=== PATIENT | female | born 1935 | race Caucasian/White ===

== ENCOUNTER 2017-04-11 05:59 | Inpatient (IN) ==
--- NOTE | 2017-04-11 06:32 | PROVIDER DOCUMENTATION ---
HPI-Respiratory General - General Chief Complaint: Shortness of Breath Stated Complaint: SOB Time Seen by Provider: 04/11/17 06:13 Source: patient, old records Allergies/Adverse Reactions: Patient Allergies Allergy/AdvReac Type Severity Reaction Status Date / Time ciprofloxacin [From Cipro] Allergy Severe PAIN Verified 04/11/17 06:31 ciprofloxacin HCl * Allergy Severe PAIN Verified 04/11/17 06:31 [From Cipro] codeine Allergy Severe Unknown Verified 04/11/17 06:31 doxycycline Allergy Severe Unknown Verified 04/11/17 06:31 meperidine HCl * Allergy Severe AMS Verified 04/11/17 06:31 [From Demerol] adhesive Allergy Unknown Regular Verified 04/11/17 06:31 Tape-pulls skin with it pneumococcal 23-valent Allergy Unknown Unknown Verified 04/11/17 06:31 polysac... * [From Pneumovax 23] Home Medications: Home Medication List Medication Instructions Recorded Confirmed Last Taken Type Cyclobenzaprine HCl [Flexeril] 10 mg PO BID 10/09/13 04/11/17 10/30/16 History Furosemide [Lasix] 40 mg PO DAILY 10/09/13 04/11/17 08/11/16 08:00 History Levothyroxine [Synthroid] 100 microgm PO DAILY 10/09/13 04/11/17 10/31/16 06:00 History Gabapentin 600 mg PO DAILY 04/29/15 04/11/17 10/31/16 06:00 History Amiodarone [Cordarone] 100 mg PO HS 02/29/16 04/11/17 10/31/16 06:00 History Apixaban [Eliquis] 2.5 mg PO DAILY 04/11/17 04/11/17 Unknown History Hydrocodone/APAP 10 mg/325 mg 1 tab PO TID 04/11/17 04/11/17 Unknown History [[place]-10] Lisinopril [Lisinopril] 1 tab PO DAILY 04/11/17 04/11/17 Unknown History - History of Present Illness-Resp Nature of Presenting Problem: pt w/ hx of afib/flutter (CVert ; Eliquis) cc: paroxysms of dyspnea/PND and incr. edema past sevl days. no violet CP. EKG last done here 02/28 showed NSR. pt had echo 09/29 w/ EF 50%, go gross pricard eff at that time, however in May [address] showing large effusion and she was sent to [facility] for ? window. Quality of Pain: reports: none Review of Systems - Adult - REVIEW OF SYSTEMS - ADULT Constitutional: reports: weight gain Eyes: reports: no symptoms reported Ears, Nose, Mouth & Throat: reports: no symptoms reported Cardiovascular: reports: see HPI, edema, irregular heart rate, orthopnea, PND. denies: syncope Respiratory: reports: dyspnea on exertion, shortness of breath. denies: hemoptysis, wheezing Gastrointestinal: reports: no symptoms reported Genitourinary: reports: no symptoms reported Musculoskeletal: reports: no symptoms reported Integumentary: reports: no symptoms reported Neurological: reports: no symptoms reported Psychiatric: reports: no symptoms reported Endocrine: reports: no symptoms reported Hematologic/Lymphatic: reports: no symptoms reported Allergic/Immunologic: reports: no symptoms reported All Other Systems: Reviewed and Negative Past History - Adult - PAST MEDICAL HISTORY-ADULT Review of Records: reports: Old Records Reviewed Major Childhood Illnesses: reports: denies history Cardiovascular: reports: HTN Respiratory: reports: denies history Gastrointestinal: reports: denies history Obstetrical/Gynecological: reports: denies history Genitourinary: reports: denies history Musculoskeletal: reports: arthritis (RA) Neurological: reports: denies history Endocrine/Immune: reports: thyroid disorder (hypo) Other Conditions: reports: denies history - PRIOR SURGERIES/PROCEDURES Surgical/Procedure History: reports: appendectomy, cholecystectomy, hysterectomy , orthopedic (extremity), joint replacement - IMMUNIZATION STATUS Childhood Immunizations: See Nurse Assessment Flu Vaccine: See Nurse Assessment - FAMILY HISTORY Family History: reviewed, not pertinent Physical Exam-General - PHYSICAL EXAM-ADULT Initial Vital Signs Reviewed: Yes - CONSTITUTIONAL General Appearance: alert, no apparent distress - EYES Eyes: PERRL/EOMI, pink conjunctivae - HEAD, EARS, NOSE, MOUTH & THROAT HENMT: normocephalic/atraumatic - NECK Neck: non-tender, full range of motion - RESPIRATORY Respiratory: no accessory muscle use, crackles, dull on percussion. negative: wheezing - CARDIOVASCULAR Cardiovascular: normal peripheral pulses, irregularly irregular, other (mult soft tissue deformities (and scars) chest wall adjacent shoulders, hx of RA) - GASTROINTESTINAL (ABDOMEN) Abdominal Exam: normal bowel sounds, non tender - LYMPHATIC Lymphatic: negative: axilla node tender, streaking - MUSCULOSKELETAL Back Exam: normal inspection, no CVA tenderness Extremity: joint effusion, swelling Peripheral Pulses: radial (R): 2+, radial (L): 2+ - SKIN Integumentary: normal color, warm/dry. negative: mottled, petechiae, rash - NEUROLOGIC Neurologic: microsoft bi developer II-XII nml as tested, grossly normal, no motor/sensory deficits Progress - PLAN OF CARE/RESULTS Progress/Plan/Lab Results: Vital Signs - 8 hr 04/11/17 06:14 04/11/17 08:00 04/11/17 09:00 Temperature 97.9 F Pulse Rate 89 85 85 Respiratory Rate 20 20 19 Blood Pressure 164/87 139/78 144/75 O2 Sat by Pulse Oximetry 100 100 99 04/11/17 10:00 04/11/17 11:38 Temperature Pulse Rate 83 83 Respiratory Rate 20 22 Blood Pressure 133/73 133/83 O2 Sat by Pulse Oximetry 100 100 Laboratory Results - last 24 hr 04/11/17 04/11/17 04/11/17 06:30 06:30 06:30 WBC 7.72 RBC 2.85 L Hgb 8.9 L Hct 29.0 L MCV 101.8 H MCH 31.2 H MCHC 30.7 L RDW Std Deviation 17.4 H Plt Count 317 MPV 9.1 Immature Gran % (Auto) 0.0 Neut % (Auto) 67.7 Lymph % (Auto) 18.8 L [place] % (Auto) 7.8 Eos % (Auto) 5.3 Baso % (Auto) 0.4 Immature Gran # (Auto) 0.00 Neut # (Auto) 5.23 Lymph # (Auto) 1.45 [place] # (Auto) 0.60 H Eos # (Auto) 0.41 Baso # (Auto) 0.03 PT INR D-Dimer 10.77 H Sodium 134 L Potassium 4.2 Chloride 93 L Carbon Dioxide 31 Anion Gap 10 BUN 21 Creatinine 1.0 H Estimated GFR/1.73 m2 53 BUN/Creatinine Ratio 21 Glucose 98 Calculated Osmolality 271 Calcium 8.8 Magnesium 2.3 Total Bilirubin 0.93 AST 27 ALT 13 Alkaline Phosphatase 173 H Creatine Kinase 91 Troponin T Gna-W-Yaxji[place]uzea Pept Total Protein 7.0 Albumin 3.3 L Globulin 3.7 Albumin/Globulin Ratio 0.9 04/11/17 04/11/17 04/11/17 06:30 06:30 06:30 WBC RBC Hgb Hct MCV MCH MCHC RDW Std Deviation Plt Count MPV Immature Gran % (Auto) Neut % (Auto) Lymph % (Auto) [place] % (Auto) Eos % (Auto) Baso % (Auto) Immature Gran # (Auto) Neut # (Auto) Lymph # (Auto) [place] # (Auto) Eos # (Auto) Baso # (Auto) PT 12.1 H INR 1.14 D-Dimer Sodium Potassium Chloride Carbon Dioxide Anion Gap BUN Creatinine Estimated GFR/1.73 m2 BUN/Creatinine Ratio Glucose Calculated Osmolality Calcium Magnesium Total Bilirubin AST ALT Alkaline Phosphatase Creatine Kinase Troponin T 0.038 Pgi-S-Tkvmvkkhnga Pept 3105 H Total Protein Albumin Globulin Albumin/Globulin Ratio Orders Category Date Time Status Admit - [facility] [place] Routine AdmDCTranf 04/11/17 11:14 Ordered Cardiac Monitoring DIRECTED Care 04/11/17 06:14 Active Nursing- MD Consult Request ROUTINE Care 04/11/17 11:20 Active Saline Loc NOW Care 04/11/17 06:14 Active Physician/Provider Consults Routine Cons 04/11/17 11:19 Ordered ANGIOGRAM/PULMONARY ARTERIES [CT] Stat Exams 04/11/17 09:15 Completed CHEST-1 VIEW [RAD] Stat Exams 04/11/17 06:15 Completed CBC WITH ELECTRONIC DIFF [HEME] Stat Lab 04/11/17 06:30 Completed CK PROFILE [SP CHEM] Stat Lab 04/11/17 06:30 Completed COMPREHENSIVE METABOLIC PANEL [CHEM] Stat Lab 04/11/17 06:30 Completed D-DIMER [CHEM] Stat Lab 04/11/17 06:30 Completed MAGNESIUM [CHEM] Stat Lab 04/11/17 06:30 Completed PRO B-NATRIURETIC PEPTIDE Stat Lab 04/11/17 06:30 Completed PROTIME WITH INR [COAG] Stat Lab 04/11/17 06:30 Completed TROPONIN T Stat Lab 04/11/17 06:30 Completed Gabapentin [Neurontin] Med 04/11/17 07:49 Discontinued 300 mg PO NOW ONE EKG [EKG] Stat Ther 04/11/17 06:01 Draft Echo Spec/Color Dop W/O Contra Stat Ther 04/11/17 11:16 Ordered Transfer/Admit Order [TRANSFER] Routine Transfer 04/11/17 11:[address] shows no PE but large pericardial effusion: will consult Hospitalist. Result Diagrams: 04/11/17 06:30 04/11/17 06:30 - CT/MRI 1 CT Results: CT shows bilat pleural effusions and pericardial effusion Departure - Departure Date of Disposition Decision: 04/11/17 Time of Disposition Decision: 11:42 DIAGNOSIS: Effusion, pericardium Disposition: ADMITTED INPATIENT 09 Certified Medical Emergency: Emergent Condition: Fair Referrals and Follow-Ups: Rosa Davis MD [Primary Care Provider] - - Critical Care Note This patient required my direct & personal management of CC.: No
--- NOTE | 2017-04-11 06:33 | Diag Imaging Result Doc PS360 ---
EXAM: CHEST-1 VIEW HISTORY: palpitations, dyspnea TECHNIQUE: Portable upright COMPARISON: 03/09/2017 FINDINGS: No change in the left subclavian portacatheter. No pneumothorax. Cardiomegaly remains. Small bilateral pleural effusions have developed. There is bibasilar atelectasis on the current exam. There may be underlying infiltrates in the bases as well. There is been extensive surgery to the right humerus since the prior exam. Prior orthopedic surgery to each shoulder. IMPRESSION: Development of pleural effusions with basilar atelectasis and/or infiltrates. Electronically signed by Oneil Gould 04/11/2017 6:31 AM
[2017-04-11 06:45] LABS: MANUAL DIFF NEEDED? NO
--- NOTE | 2017-04-11 06:53 | EKG Report ---
Test Performed on : 04/11/2017 06:08:04 AM Test Reason : SOB Blood Pressure : / mmHG Vent. Rate : 106 BPM Atrial Rate : 136 BPM P-R Int : 000 ms QRS Dur : 104 ms QT Int : 374 ms P-R-T Axes : 000 041 187 degrees QTc Int : 496 ms Atrial fibrillation. with rapid ventricular response. Anterior infarct , age undetermined Abnormal ECG When compared with ECG of 09-MAR-2017 16:09, Atrial fibrillation. has replaced Sinus rhythm. Anterior infarct is now present Unconfirmed Result
[2017-04-11 07:04] LABS: ALBUMIN 3.3 g/dL (3.5-5.0); BASO% 0.4 % (0.0-0.8); CALCIUM 8.8 mg/dL (8.8-10.2); EOS# 0.41 X1000 (0.0-0.7); EOS% 5.3 % (0.0-10.0); HEMOGLOBIN 8.9 g/dL (12.0-16.0); LYMPH# 1.45 X1000 (1.2-3.4); LYMPH% 18.8 % (20.5-51.1); MAGNESIUM 2.3 mg/dL (1.5-2.7); MCH 31.2 PG (27-31); MCHC 30.7 g/dL (33-37); MCV 101.8 FL (81-99); MONO% 7.8 % (1.7-9.3); MPV 9.1 FL (7.4-10.4); NEUT% 67.7 % (42.2-75.2); PLT 317 X1000 (130-400); POTASSIUM 4.2 mmol/L (3.5-5.1); RBC 2.85 XMIL (4.2-5.4); TOTAL BILIRUBIN 0.93 mg/dL (0.20-1.00)
[2017-04-11 07:14] LABS: INR 1.14; PROTIME 12.1 Seconds (9.2-11.7)
[2017-04-11] MEDS ORDERED: NEURONTIN PO ONE (07:49)
--- NOTE | 2017-04-11 10:26 | Diag Imaging Result Doc PS360 ---
ANGIOGRAM/PULMONARY ARTERIES - 04/11/2017 INDICATION: dyspnea, stable CXR, dimer > 10 TECHNIQUE: A CT dose reduction protocol was used. Axial CT images were obtained after administering intravenous contrast. Coronal MIP images were generated. COMPARISON: 06/12/2016 FINDINGS: There is no pulmonary embolism. There is significant reflux of contrast into the IVC and renal and hepatic veins indicating cardiac failure. There is a large multifocal irregular complicated pericardial effusion. The largest area is at the left lateral surface and measures about 9.5 x 5.3 cm. There is also a smaller area at the inferior right ventricle measuring 4.4 cm. Overall this effusion is smaller than it was on 06/12/2016. There are moderate bilateral pleural effusions. There is moderate collapse of the lung bases, worst at the right lower lobe. There is interlobular septal thickening throughout the lungs and groundglass opacities diffusely compatible with interstitial pulmonary edema. There are numerous compression fractures in the thoracolumbar spine, and numerous vertebroplasty levels. Bones are very osteopenic. IMPRESSION: 1. No pulmonary embolism. 2. Moderate pleural effusions and bibasilar extensive passive atelectasis. 3. Right heart failure. 4. Relatively large complicated pericardial effusion. Electronically signed by Cirilo Dalton 04/11/2017 10:23 AM
--- NOTE | 2017-04-11 13:02 | CONSULTATION ---
DATE OF CONSULTATION: 04/11/2017 HISTORY OF PRESENT ILLNESS: A 81-year-old lady who presented to the emergency room with shortness of breath. The patient has history of atrial flutter and fibrillation, underwent cardioversion. Complains of increasing dyspnea on exertion and some paroxysmal dyspnea as well. She has noticed some increased edema lower extremities over the last several days. No chest pain. She has had a complicated cardiac history as listed below. A CT scan was done of her chest which revealed a pericardial and pleural effusion. Cardiology was consulted. At time of my examination, patient does not complain of any chest pain. She has had significant rheumatoid arthritis and her main problems have been with shortness of breath. There has been no syncope. A 14-point review of systems was done. REVIEW OF SYSTEMS: GI: There is no history of nausea, vomiting, or diarrhea. There is no history of hematemesis or melena. Central nervous system: No focal weakness to suggest a CVA or TIA. Genitourinary: There is no dysuria or hematuria. PAST MEDICAL HISTORY: 1. Coronary artery disease. 2. Atrial flutter/fibrillation, status post cardioversion in 2016. 3. Rheumatoid arthritis. Chronic hyponatremia, dysphagia, renal insufficiency in 2016. Hypothyroidism. Hypertension. Heart failure. 4. Pleural effusion. Pericardial effusion status post pericardiocentesis 08/2009. 1. Loculated pericardial effusion 06/13/2016 at [facility], status post left anterior thoracotomy and exploration of the pericardium on 06/15/2016. The patient had a subxiphoid pericardial window and removal of cardiotomy drain on 06/21/2016. 2. History of dysphagia. 3. Barium swallow. Tertiary contractions during swallowing. 4. Personal history of fall. HOME MEDICATIONS: Lasix 40 mg a day. Levothyroxine 112. Cyclobenzaprine. Flexeril 10 mg p.o. b.i.d. Gabapentin 300. Amiodarone 200 mg tablet, 100 mg at bedtime. Eliquis 2.5 mg b.i.d. Lisinopril 5. Hydrocodone. ALLERGIES: She is allergic to ciprofloxacin, codeine, doxycycline, meperidine. PHYSICAL EXAMINATION: Vital signs: Blood pressure 133/83. First and second heart sounds were heard. There was no rub noted. No S3 gallop. Respiratory system: Basal dullness with scattered wheeze, crepitations. Abdomen: Soft, nontender. There was no guarding or rigidity. Extremities: Pedal edema. Endocrine: She had rheumatoid arthritis involving her extremities and joints. Central nervous system: Alert, moving all extremities. HEENT: Atraumatic. Pupils were equal and reacting to light. LABORATORY EXAMINATION: Hemoglobin 8.9, hematocrit 29, platelet count of 315,000. Chemistry: Sodium 134, potassium 4.2, BUN 21, creatinine 1. ProBNP 3105. Troponin 0.038. IMAGIN. X-ray of the hip and pelvis was done on 03/09/2017 which revealed acute on chronic fractures of the right pubic rami. 2. Shoulder x-ray 03/09/2017 revealed a periprosthetic fracture at the right humerus midshaft. 3. Knee x-ray 03/09/2017 revealed malalignment of the knee with posterior translation of the distal femur. As she had a fall, this was done, suggestive of internal derangement, large joint effusion. This was of the right knee. 4. CT scan: Pulmonary arteriogram was done today in the emergency room which revealed no pulmonary embolism. Pleural effusions with extensive atelectasis bilateral. There was a pericardial effusion noted and heart failure. ASSESSMENT: Ms. Lea Frank is a 81-year-old lady who comes with increasing shortness of breath and has significant severe rheumatoid arthritis, complicated cardiac history status post pericardial window placement and effusion drainage. She has also had heart failure, pleural effusion. CT scan revealed cardiomegaly, pleural effusion and pericardial effusion PLAN: 1. We will get an echocardiogram to assess for the pericardial effusion to see there is significant effusion and/or tamponade. Of note is that she has had a pericardial window placed in the past in 2016. 2. Atrial fibrillation. Her electrocardiogram revealed atrial fibrillation with rate under control. She is on amiodarone and Eliquis. I have not made any changes. She underwent a cardioversion earlier to sinus rhythm. Now she has reverted back to being in atrial fibrillation. 3. She has significant rheumatoid arthritis with associated joint disease involvement as mentioned above. 4. Would recommend discontinuing the Lasix p.o. and given her pleural effusion, we will also get IV Lasix to help with her heart failure. 5. She has hypothyroidism, on thyroid supplement. I have not made any changes. In the past, she has had chest tubes placed for pleural effusion. However, we will assess the progress with IV Lasix and after the echocardiogram, we will plan for further recommendations as well. Thank you for the consult. cc: Stanley Hughes MD
--- NOTE | 2017-04-11 14:47 | ECHO REPORT ---
ORDER DATE: 04/11/2017 INDICATION: Possible tamponade, history of coronary disease. FINDINGS: 1. Right atrium is normal size at 3.2 cm. 2. Mild tricuspid regurgitation. RV systolic pressure of 51. 3. Normal RV size and systolic function. 4. Mild pulmonic insufficiency. 5. Normal left atrial size at 2.6 cm. 6. There is a moderate amount of mitral annular calcification with no evidence of mitral valve prolapse. Likely moderate mitral regurgitation. There is insufficient Doppler evidence to assess the transmitral gradient but there does not appear to be any significant degree of stenosis based on normal left atrial size. In addition, I do not believe the degree of mitral regurgitation is severe based on the normal left atrial size. 7. Normal LV size with an end-diastolic dimension of 4.6. Normal wall thicknesses with a posterior and interventricular septal thickness 0.9 cm each. Normal LV systolic function. Estimated EF is 60-65% with normal wall motion. 8. Aortic valve opens well. It is somewhat sclerotic, but not stenotic. There is mild aortic insufficiency. 9. Aorta appears somewhat dilated at the root with a dimension of 4.3 cm. 10. No pericardial effusion seen. cc: MD Orville Rubi CRNP
--- NOTE | 2017-04-11 14:47 | HISTORY AND PHYSICAL ---
PRIMARY CARE PHYSICIAN: Rosa Davis MD. AUTOMOBILE BODY REPAIR SUPERVISOR: Dr. Yayo Langley. CHIEF COMPLAINT: Shortness of breath. HISTORY OF PRESENT ILLNESS: Mrs. Frank is a very pleasant, but unfortunate 81- year-old female with a history of atrial fibrillation/flutter, severe rheumatoid arthritis, history of pericardial effusion requiring pericardial window, and a recent right humeral fracture, who presents with acute worsening of shortness of breath over the last several days. She reports having some shortness of breath over the last month but acutely worse over the past week. She came in today because she cannot even sit up without becoming short of breath. She denies any chest pain, but does report some orthopnea, lower extremity edema and PND. She came to the ER for evaluation and had a CTA of the chest done which was negative for PE but did report relatively large complicated pericardial effusion with right heart failure. There was also interlobular septal thickening throughout the lungs with ground-glass opacities diffusely compatible with interstitial pulmonary edema. Her spine was noted to have multiple compression fractures and numerous vertebroplasty levels with osteopenic bones. On her lab work she is anemic but otherwise unremarkable. We spoke with Cardiology who ordered a stat echocardiogram, this did not reveal any tamponade physiology. We are now going to admit her for further treatment and evaluation. PAST MEDICAL HISTORY: 1. Rheumatoid arthritis. 2. History of pericardial effusion, status post pericardial window. 3. CAD. 4. Atrial fibrillation/flutter. 5. Hypothyroidism. 6. Hypertension. 7. Diastolic heart failure. 8. History of hyponatremia. PAST SURGICAL HISTORY: She has had a pericardial window, left anterior thoracotomy and exploration of pericardium, cholecystectomy, appendectomy, DC cardioversion, left chest port, bilateral hip replacements, bilateral shoulder replacements, bilateral knee replacements, recent humeral ORIF. SOCIAL HISTORY: Patient lives at home with her . There is no tobacco, alcohol or drug use. She is currently bed and wheelchair bound essentially per Orthopedics recommendations from her recent fall with humeral fracture. ALLERGIES: To ciprofloxacin, codeine, doxycycline, Demerol, adhesive tapes, pneumococcal vaccination. HOME MEDICATIONS: Lisinopril 1 daily. [place] 10 as needed for pain 3 times a day. Eliquis 2.5 mg daily. Synthroid 100 mcg p.o. daily. Neurontin 600 mg p.o. daily. Lasix 40 mg p.o. daily. Flexeril 10 mg b.i.d. Amiodarone 100 mg p.o. at bedtime. REVIEW OF SYSTEMS: Fourteen-point review of systems obtained and found to be negative with the exception of the HPI. PHYSICAL EXAMINATION: VITAL SIGNS: Blood pressure is 128/80, heart rate is 82, respiratory rate 22, O2 saturation 100% on 3 L nasal cannula, temperature is 97.9 degrees. GENERAL: Frail and elderly appearing, 81-year-old female, lying in a hospital bed in no acute distress. NEUROLOGIC: The patient is awake, alert, oriented and follows commands without focal deficits. HEENT: Head is atraumatic, normocephalic. Pupils equal, round, and reactive to light. Oral mucosa is moist. Trachea is midline. No JVD. CHEST: Diminished at the bases with very fine crackles bilaterally. CV: Irregular rate and rhythm. S1, S2 is noted. GI: Soft, nondistended, nontender. Bowel sounds positive. EXTREMITIES: Diminished pulses, 1+ edema bilaterally. DIAGNOSTIC DATA: Chest x-ray shows development of small bilateral pleural effusions with basilar atelectasis and/or infiltrates. CT of the chest shows no PE, moderate pleural effusions and basilar extensive passive atelectasis. There is right heart failure and relatively large complicated pericardial effusion. LAB DATA: WBC 7.72, hemoglobin 8.9, hematocrit 29, MCV 101.8, platelet count 317,000, INR 1.14, D- dimer 10.77. Sodium 134, potassium 4.2, chloride 93, CO2 31, anion gap 10, BUN 29, creatinine 1, glucose 98, calcium 8.8, magnesium 2.3, bilirubin 0.93, AST 27, ALT 13, alkaline phosphatase 173. CK 91, troponin 0.038, proBNP 3105. Albumin 3.3. ASSESSMENT AND PLAN: 1. Dyspnea: Likely multifactorial to include right heart failure, pericardial effusion, pulmonary edema. We are going to diurese her, and await final echo results. No need for pericardiocentesis or a window at this time per Cardiology report. We will make sure she has breathing treatments and aggressive pulmonary toilet. We will follow strict ins and outs and daily weights, and attempt to diurese her. We will trend her enzymes as well. 2. Large pericardial effusion: There is no associated tamponade physiology per Cardiology report. We will continue to monitor and diuresis and defer any other treatments to Cardiology. 3. Macrocytic anemia: Iron studies are pending. We will treat accordingly. 4. Severe rheumatism: We will continue her home medications. Otherwise stable. 5. Bilateral pleural effusion: We will attempt diuresis, if no improvement, would consider consulting Pulmonary or asking Radiology to do a thoracentesis. 6. Chronic atrial fibrillation: Chronic and stable, continue home medications including Eliquis. 7. Hypothyroidism: We will make sure we check a TSH and free T4 in the morning. 8. Deep venous thrombosis prophylaxis is going to be provided with her Eliquis. 9. Further recommendations to follow. Dictated by REBECCA Moore for Oneyda Figueroa MD cc: REBECCA Moore MD Sarah E. Styers, MD Luis N. Villanueva, MD The patient was seen and examined by me. I agree with the assessment and plan as dictated. The plan of care was discussed with the patient and her at the bedside. DENISE
[2017-04-11] MEDS: LASIX IV SCH (15:06)
[2017-04-11] MEDS: NORCO-10 PO SCH (16:02)
[2017-04-11] MEDS: CORDARONE PO SCH (20:44)
[2017-04-11] MEDS: FLEXERIL PO SCH (20:45)
[2017-04-11] MEDS: NEURONTIN PO SCH (20:46)
[2017-04-12] MEDS: LASIX IV SCH ×2 (01:15→12:21)
[2017-04-12 06:01] LABS: CALCIUM 8.7 mg/dL (8.8-10.2); POTASSIUM 3.9 mmol/L (3.5-5.1)
[2017-04-12 06:07] LABS: HEMATOCRIT 30.8 % (37.0-47.0); HEMOGLOBIN 9.6 g/dL (12.0-16.0); MCH 32.3 PG (27-31); MCHC 31.2 g/dL (33-37); MCV 103.7 FL (81-99); MPV 9.3 FL (7.4-10.4); RBC 2.97 XMIL (4.2-5.4)
[2017-04-12] MEDS: NEURONTIN PO SCH ×3 (06:37→16:28)
[2017-04-12 06:55] LABS: FERRITIN 819 ng/mL (13-150)
[2017-04-12] MEDS: ELIQUIS PO SCH ×2 (08:05→20:50)
[2017-04-12] MEDS: FLEXERIL PO SCH ×2 (08:05→20:49)
[2017-04-12] MEDS: NORCO-10 PO SCH ×3 (08:05→16:27)
[2017-04-12] MEDS: PRINIVIL PO SCH (08:05)
[2017-04-12] MEDS ORDERED: ELIQUIS PO SCH (09:00)
[2017-04-12] MEDS ORDERED: SYNTHROID PO SCH (09:00)
[2017-04-12] MEDS ORDERED: NEURONTIN PO SCH (09:00)
--- NOTE | 2017-04-12 10:02 | PROGRESS NOTE ---
DATE: 04/12/2017 CHIEF COMPLAINT: Shortness of breath, irregular heartbeat. SUBJECTIVE: Mrs. Frank is still somewhat short of breath. Heart rate is better controlled. She appears to be in persistent atrial flutter. OBJECTIVE: Vital signs: Blood pressure is 133/73, temperature 97.9, pulse 86 to 90, respirations 25. General: Elderly, in no distress, frail looking, somewhat pale. HEENT: Unremarkable. Chest: Diminished breath sounds bilaterally. Cardiac: Heart sounds are "regular" without gallop or obvious murmur. Abdomen: Nontender. Extremities: Showed edema, right leg 2+, left leg 1+. Right arm is markedly edematous. It has a scar of recent surgery. Left arm is fine. Neurological: Follows commands, moves four extremities. BLOOD WORK: White count 6160, hemoglobin 9.6, hematocrit 30.8, MCV 103.7, RDW 17.5, platelet count 264,000. We have checked electrolytes: Sodium 136, potassium 3.9, carbon dioxide 33, BUN 20, creatinine 0.9. Her iron saturation is 27%, ferritin is 819. TSH is 20.24. Free T4 is low at 0.82. ProBNP is 3105. When she came into the hospital a month ago, the day of her accident, her proBNP was higher than that. Her sed rate is 81. Her rheumatoid factor that we have ordered this morning is greater than 650. That is more than 40 times the normal value. IMPRESSION: 1. Patient who presented initially on March 09 to the emergency room after suffering a fall at home, breaking her right arm and the pelvic bone. She was taken to [facility] where they operated on the arm and recommended basically bedrest for management of her pelvic bone fracture. The patient was at [facility] probably getting IV fluids for 4 days or so. Lately, she has developed swelling of her legs. More than likely she has flipped her rhythm from sinus rhythm into atrial flutter due to the stress of the broken bones and the surgery plus the fluid overload, and this has self-perpetuated. The patient is in atrial flutter right now. 2. Congestive heart failure secondary to fluid overload, diastolic dysfunction. 3. Rheumatoid arthritis with laboratory suggestion of activity. 4. Fractured arm and pelvic bone. RECOMMENDATION: We will try to optimize her fluid management or fluid status by using diuretics for the time being. Once the patient is euvolemic, we will consider pursuing cardioversion. An echocardiogram was done yesterday, and that shows excellent left ventricular systolic function without any evidence of pericardial effusion. On the CT scan of the chest that they did on admission at this time on April 11, there is evidence of bilateral pleural effusions and a loculated paracardiac collection, but it does not appear to be actually pericardial per se and is not causing any physiology of tamponade. At any rate, we will follow her. Of note, her D-dimer on presentation was elevated at 10.77, which might be an indication of active inflammatory process related to her rheumatoid arthritis. cc: Yayo Langley MD
--- NOTE | 2017-04-12 14:05 | PROGRESS NOTE ---
DATE: 04/12/2017 SUBJECTIVE: The patient states that she feels a lot better this morning. She is less short of breath. OBJECTIVE: Vital Signs: Temperature 98 degrees, blood pressure 96/68, heart rate 88, respirations 20, O2 saturation is 100% on 2 L nasal cannula. General: This is an elderly female lying in bed, in no acute distress. Head: Normocephalic, atraumatic. Heart: S1, S2. Normal. Irregularly irregular rhythm. Lungs: Equal air entry bilaterally. No crackles. Abdomen: Positive bowel sounds. Soft, nontender, nondistended. Extremities: +2 edema. No cyanosis. No calf tenderness. Neurologic: The patient is alert and oriented x3. LABORATORY: White blood cell count 6.1, hemoglobin 9.6, hematocrit 30, platelets 264,000. Sodium 136, potassium 3.9, chloride 94, CO2 33, BUN 20, creatinine 0.9, glucose 77. ASSESSMENT AND PLAN: 1. Acute diastolic congestive heart failure exacerbation. Continue to diurese with IV Lasix. We will monitor the patient's input and output closely. We will also monitor daily weights. Further management as per the water team leader. 2. Atrial flutter. The patient is on amiodarone and Eliquis. 3. Hypothyroidism. We will increase the patient's Synthroid dosage to 125 mcg p.o. daily. 4. Severe rheumatoid arthritis. The patient appears to be having increased activity based on the blood work done this morning. The patient states that she gets Orencia infusions on a regular basis. 5. Neuropathy. Continue on gabapentin. cc: Oneyda Figueroa MD
[2017-04-12] MEDS: CORDARONE PO SCH (20:49)
[2017-04-12] MEDS ORDERED: MISC. PHARMACY COMMUNICATION SCH (21:00)
[2017-04-13 05:41] LABS: HEMATOCRIT 29.4 % (37.0-47.0); HEMOGLOBIN 9.1 g/dL (12.0-16.0); MCH 32.4 PG (27-31); MCV 104.6 FL (81-99); MPV 9.1 FL (7.4-10.4); RBC 2.81 XMIL (4.2-5.4)
[2017-04-13 05:48] LABS: AGAP 11; BUN 22 mg/dL (8-22); CALCIUM 8.5 mg/dL (8.8-10.2); CHLORIDE 94 mmol/L (98-107); COSMO 278; POTASSIUM 3.9 mmol/L (3.5-5.1); SODIUM 138 mmol/L (136-145); TCO2 33 mmol/L (25-35)
[2017-04-13] MEDS: LASIX IV SCH ×2 (05:53→17:18)
[2017-04-13] MEDS: SYNTHROID PO SCH ×2 (05:53→07:44)
[2017-04-13] MEDS ORDERED: NEURONTIN PO SCH (07:00)
[2017-04-13] MEDS ORDERED: NORCO-10 PO SCH (07:00)
[2017-04-13] MEDS: NORCO-10 PO SCH ×3 (08:17→21:34)
[2017-04-13] MEDS: NEURONTIN PO SCH ×3 (08:17→21:33)
[2017-04-13] MEDS: PRINIVIL PO SCH (08:17)
[2017-04-13] MEDS: ELIQUIS PO SCH ×2 (08:17→21:34)
[2017-04-13] MEDS: FLEXERIL PO SCH ×2 (08:18→21:35)
--- NOTE | 2017-04-13 08:20 | Diag Imaging Result Doc PS360 ---
EXAM: CHEST-PORTABLE HISTORY: pulmonary edema TECHNIQUE: Portable upright AP COMPARISON: 04/11/2017 FINDINGS: There is a left subclavian portacatheter. No pneumothorax. Cardiomegaly remains. Pulmonary edema is slightly less pronounced. There are small pleural effusions as well as basilar atelectasis. Prior orthopedic replacement of each shoulder. IMPRESSION: Mild decrease in pulmonary edema. Electronically signed by Oneil Gould 04/13/2017 8:18 AM
--- NOTE | 2017-04-13 11:51 | PROGRESS NOTE ---
DATE: 04/13/2017 SUBJECTIVE: Ms. Frank has been doing well. She has no complaints today. She is lying in bed. She does get somewhat short of breath when she is out of bed ambulating to the restroom. OBJECTIVE: Vital Signs: On physical examination she is afebrile. Heart rate 83, blood pressure 122/72. Her I's and O's total for the hospitalization have been -2.7 L. General: No acute distress. Cardiovascular: Regular rate and rhythm. No murmurs. No S3. No lower extremity edema. Chest: Exam has coarse breath sounds heard throughout. No increased work of breathing. Abdomen: Soft, nontender. PERTINENT DATA: White count 5.6, hematocrit 29.4, platelet count is 244. Sodium 138, potassium 3.9, BUN 22, creatinine 0.8 which is roughly stable from yesterday. Her proBNP on presentation was 3105. ASSESSMENT: 1. Atrial fibrillation. 2. Likely diastolic heart failure. PLAN: Continue on IV diuretics. The patient will likely plan for cardioversion in the near future. She is diuresing well and symptoms seemed to be improving. cc: Willard Reeder MD
--- NOTE | 2017-04-13 15:30 | PROGRESS NOTE ---
DATE: 04/13/2017 SUBJECTIVE: The patient is resting comfortably in bed. She states that her shortness of breath has improved. No acute events noted overnight. OBJECTIVE: Vital Signs: Temperature 98 degrees, blood pressure 105/71, heart rate 85, respirations 16, O2 saturations 100% on 2 L nasal cannula. General: This is an elderly female lying in bed in no acute distress. Head: Normocephalic, atraumatic. Heart: S1, S2. Normal. Regular rate and rhythm. Lungs: Clear to auscultation bilaterally. No wheezing. No rales. No rhonchi. Abdomen: Positive bowel sounds. Soft, nontender, nondistended. Extremities: +1 edema. No cyanosis. No calf tenderness. Neurologic: The patient is alert and oriented x3. LABS: White blood cell count 5.5, hemoglobin 9.1, hematocrit 29, platelets 244,000. Sodium 138, potassium 3.9, chloride 94, CO2 33, BUN 22, creatinine 0.8, glucose 80. ASSESSMENT AND PLAN: 1. Acute diastolic congestive heart failure exacerbation. Improving. Continue with diuretic therapy. Cardiology is following. 2. Atrial fibrillation. Continue on Eliquis and amiodarone. 3. Hypothyroidism. Continue on Synthroid. 4. Rheumatoid arthritis. The patient will follow up as outpatient for continued treatment. 5. Neuropathy. Continue on gabapentin. 6. Chronic right-sided pubic rami fracture. Aware. cc: Oneyda Figueroa MD
[2017-04-13] MEDS: CORDARONE PO SCH (21:35)
[2017-04-14] MEDS ORDERED: CALMOSEPTINE OINTMENT TOP PRN (02:06)
[2017-04-14 05:42] LABS: HEMATOCRIT 30.4 % (37.0-47.0); HEMOGLOBIN 9.4 g/dL (12.0-16.0); MCH 31.6 PG (27-31); MCHC 30.9 g/dL (33-37); MCV 102.4 FL (81-99); MPV 9.2 FL (7.4-10.4); RBC 2.97 XMIL (4.2-5.4)
[2017-04-14 06:08] LABS: CALCIUM 8.8 mg/dL (8.8-10.2); POTASSIUM 4.2 mmol/L (3.5-5.1)
[2017-04-14] MEDS: LASIX IV SCH (06:10)
[2017-04-14] MEDS: SYNTHROID PO SCH (06:10)
[2017-04-14] MEDS: ELIQUIS PO SCH ×2 (08:28→20:58)
[2017-04-14] MEDS: PRINIVIL PO SCH (08:28)
[2017-04-14] MEDS: NEURONTIN PO SCH ×3 (08:28→20:59)
[2017-04-14] MEDS: NORCO-10 PO SCH ×3 (08:28→20:59)
[2017-04-14] MEDS: FLEXERIL PO SCH ×3 (08:28→20:59)
--- NOTE | 2017-04-14 14:15 | PROGRESS NOTE ---
DATE: 04/14/2017 SUBJECTIVE: The patient is resting comfortably in bed. She has no complaints at this time. She states that her shortness of breath has improved. She has less swelling in her lower extremities. OBJECTIVE: Vital Signs: Temperature 97.9 degrees, blood pressure 97/50, heart rate 87, respirations 19, O2 saturations 100% on 2 L nasal cannula. General: This is an elderly female, lying in bed in no acute distress. Head: Normocephalic, atraumatic. Heart: S1, S2. Normal. Lungs: Clear to auscultation bilaterally. No crackles. No rales. Abdomen: Positive bowel sounds. Soft, nontender, nondistended. Extremities: Trace pedal edema. No cyanosis. No calf tenderness. Neurologic: The patient is alert and oriented x3. LABS: White blood cell count 5.9, hemoglobin 9.4, hematocrit 30, platelets 261. Sodium 135, potassium 4.2, chloride 93, CO2 36, BUN 23, creatinine 1, glucose 88. ASSESSMENT AND PLAN: 1. Acute diastolic congestive heart failure exacerbation. Improving daily. Further management as per the precision millwright. 2. Atrial fibrillation. Continue on the current medications. 3. Acute kidney injury. This is most likely secondary to diuretic therapy. Will defer to the precision millwright regarding adjustment of the diuretic therapy. 4. Hypothyroidism. Continue on Synthroid. 5. Rheumatoid arthritis. Aware. cc: Oneyda Figueroa MD MTDD
[2017-04-14] MEDS: LASIX PO SCH (20:59)
[2017-04-14] MEDS: CORDARONE PO SCH (20:59)
[2017-04-15 05:06] LABS: HEMATOCRIT 30.7 % (37.0-47.0); HEMOGLOBIN 9.5 g/dL (12.0-16.0); MCH 31.6 PG (27-31); MCHC 30.9 g/dL (33-37); MPV 8.8 FL (7.4-10.4); RBC 3.01 XMIL (4.2-5.4)
[2017-04-15 05:25] LABS: CALCIUM 8.9 mg/dL (8.8-10.2)
[2017-04-15] MEDS: SYNTHROID PO SCH (06:10)
[2017-04-15] MEDS: PRINIVIL PO SCH (08:17)
[2017-04-15] MEDS: NEURONTIN PO SCH ×3 (08:17→21:59)
[2017-04-15] MEDS: NORCO-10 PO SCH ×3 (08:17→22:00)
[2017-04-15] MEDS: ELIQUIS PO SCH ×2 (08:18→21:59)
[2017-04-15] MEDS: FLEXERIL PO SCH ×2 (08:18→21:59)
[2017-04-15] MEDS: LASIX PO SCH ×2 (08:18→21:59)
--- NOTE | 2017-04-15 11:37 | Diag Imaging Result Doc PS360 ---
EXAM: CHEST-1 VIEW HISTORY: chf TECHNIQUE: AP portable chest at 1120 COMMENT: Compared to the previous study of 04/13/2017 there appears to be slightly less pleural fluid. There continues to be cardiomegaly and interstitial pulmonary edema, the latter of which also appears to have improved slightly since the previous study. IMPRESSION: Improved pulmonary edema and pleural effusions. Electronically signed by Woody Lees 04/15/2017 11:35 AM
--- NOTE | 2017-04-15 14:19 | PROGRESS NOTE ---
DATE: 04/15/2017 SUBJECTIVE: The patient is resting comfortably in bed. No acute events noted overnight. The patient states that she feels better. OBJECTIVE: Vital Signs: Temperature 98 degrees, blood pressure 95/62, heart rate 85, respirations 20, O2 saturation is 100% on room air. General: This is an elderly female, lying in bed, in no acute distress. Head: Normocephalic, atraumatic. Heart: S1, S2, normal. Lungs: Equal air entry bilaterally. No crackles. No rales. Abdomen: Positive bowel sounds. Soft, nontender, nondistended. Extremities: Trace pedal edema. No cyanosis. No calf tenderness. Neurologic: The patient is alert and oriented x3. LABS: White blood cell count 5.5, hemoglobin 9.5, hematocrit 30, platelets 246,000. Sodium 133, potassium 4, chloride 92, CO2 38, BUN 22, creatinine 0.9, glucose 90. ASSESSMENT AND PLAN: 1. Acute diastolic congestive heart failure exacerbation. The patient is now on oral Lasix. 2. Atrial fibrillation. Continue on the current medications. 3. Acute kidney injury. Resolved. 4. Hypothyroidism. Continue on Synthroid. 5. Rheumatoid arthritis. Aware. 6. Will consult physical therapy. cc: Oneyda Figueora MD
[2017-04-15] MEDS ORDERED: PEPCID PO ONE (20:51)
[2017-04-15] MEDS ORDERED: ZOFRAN IV PRN (20:51)
[2017-04-15] MEDS: CORDARONE PO SCH (22:00)
[2017-04-16 05:15] LABS: HEMATOCRIT 29.9 % (37.0-47.0); HEMOGLOBIN 9.2 g/dL (12.0-16.0); MCHC 30.8 g/dL (33-37)
[2017-04-16] MEDS: SYNTHROID PO SCH ×2 (05:19→06:57)
[2017-04-16 05:28] LABS: ALBUMIN 2.9 g/dL (3.5-5.0); CALCIUM 8.9 mg/dL (8.8-10.2); POTASSIUM 4.2 mmol/L (3.5-5.1)
[2017-04-16 06:32] LABS: MCH 32.3 PG (27-31); MCV 104.9 FL (81-99); MPV 9.2 FL (7.4-10.4); RBC 2.85 XMIL (4.2-5.4)
--- NOTE | 2017-04-16 07:28 | EKG Report ---
Test Performed on : 04/14/2017 03:23:27 AM Test Reason : No ORder in [employer] Blood Pressure : / mmHG Vent. Rate : 086 BPM Atrial Rate : 086 BPM P-R Int : 112 ms QRS Dur : 108 ms QT Int : 402 ms P-R-T Axes : 118 078 231 degrees QTc Int : 481 ms Normal sinus rhythm. Nonspecific ST and T wave abnormality Prolonged QT Abnormal ECG When compared with ECG of 14-APR-2017 03:22, (Unconfirmed) Sinus rhythm. has replaced Ectopic atrial rhythm. Confirmed by Mic BAEZ, MDavey Mackenzie ([id number]) on 04/16/2017 9:16:50 AM
[2017-04-16] MEDS: LASIX PO SCH ×2 (08:30→20:40)
[2017-04-16] MEDS: ELIQUIS PO SCH ×2 (08:30→20:40)
[2017-04-16] MEDS: NORCO-10 PO SCH ×3 (08:30→20:41)
[2017-04-16] MEDS: NEURONTIN PO SCH ×3 (08:30→20:40)
[2017-04-16] MEDS: PRINIVIL PO SCH (08:30)
[2017-04-16] MEDS: FLEXERIL PO SCH ×2 (08:30→20:40)
[2017-04-16] MEDS ORDERED: ANESTHESIA PB SET 88 IN 5742 ONE (13:41)
[2017-04-16] MEDS ORDERED: NS 1,000 ML ONE (13:42)
[2017-04-16] MEDS ORDERED: DIPRIVAN 1% ONE (13:52)
--- NOTE | 2017-04-16 16:02 | PROGRESS NOTE ---
DATE: 04/16/2017 SUBJECTIVE: The patient is resting comfortably in bed. She has no complaints. OBJECTIVE: Vital Signs: Temperature 98, blood pressure 107/64, heart rate 91, respirations 18, O2 saturation is 100% on room air. General: This is an elderly female, lying in bed, in no acute distress. Head: Normocephalic, atraumatic. Heart: S1, S2 normal. Regular rate and rhythm. Lungs: Clear to auscultation bilaterally. No wheezes, no rales. No rhonchi. Abdomen: Positive bowel sounds. Soft, nontender, nondistended. Extremities: No edema. No cyanosis. Neurologic: The patient is alert and oriented x3. LABS: Reviewed. ASSESSMENT AND PLAN: 1. Acute diastolic congestive heart failure exacerbation, improved. Management as per the peoplesoft administrator. 2. Atrial fibrillation. Continue on the current cardiac medications. 3. Hypothyroidism. Continue on Synthroid. 4. Rheumatoid arthritis. Aware. 5. Continue physical therapy. cc: Oneyda Figueroa MD
--- NOTE | 2017-04-16 18:50 | PROGRESS NOTE ---
DATE: 04/16/2017 CHIEF COMPLAINT: Shortness of breath, irregular heartbeat. SUBJECTIVE: Ms. Frank in general is feeling better. Her chest x-ray is clearing up. Her heart rate for the most part has been better controlled, but she is still in atrial flutter or fibrillation. OBJECTIVE: Blood pressure is 104/54, pulse 88, respirations 16, temperature 97.6. She is awake, alert and oriented. HEENT is unremarkable. Chest: Diminished breath sounds at both bases. Heart sounds are "regular" without gallop or murmur. Abdomen is soft. Extremities showed deformity in the right upper extremity, elbow swollen, those are postsurgical changes. She has the stigmata of rheumatoid arthritis in both hands, very extensive changes. No significant edema in the legs. DIAGNOSTIC DATA: Blood work shows hemoglobin 9.2, hematocrit is 29.9, white cell count is 7630. Albumin is 2.9. Sodium is 134, potassium 4.2, BUN is 23, creatinine 0.9. IMPRESSION: 1. The patient presented with increasing dyspnea, evidence of bilateral pleural effusions. 2. Atrial flutter with rapid response, now is better controlled. 3. Congestive heart failure, diastolic dysfunction, acute on chronic. 4. Rheumatoid arthritis, public accountant, with increased activity. RECOMMENDATIONS: At this point in time, I would suggest to consider electrical cardioversion to restore sinus rhythm. Benefits, risks and complications were explained to her. She understood. She is agreeable to proceed. She has been on anticoagulant, apixaban 2.5 twice a day, for quite some time now. Risk of stroke is deemed to be low. Further advice will be forthcoming. cc: Yayo Langley MD
--- NOTE | 2017-04-16 20:05 | CARDIAC CATH REPORT ---
DATE: 04/16/2017 PROCEDURE PERFORMED: Direct current cardioversion. INDICATION: Persistent atrial flutter. HISTORY OF PRESENT ILLNESS: This is a 81-year-old lady who has rheumatoid arthritis, previous pericardial effusion with pericardiectomy. She presented with increasing dyspnea, bilateral pleural effusions, and she was noted to be in atrial flutter. After treating her state of fluid overload, we felt that she would be in appropriate condition for a cardioversion. The benefits, risks and complications were explained to her. She understood and requested to proceed. She has been anticoagulated all this time with Eliquis. DESCRIPTION OF PROCEDURE: The patient came into the cardiac hospital laboratory technician in the fasting state. The pads were positioned in anterior posterior location. She was given intravenous anesthesia (propofol) under the Anesthesia Services of Dr. Devine . Once the patient was adequately sedated, she received a single countershock synchronized to the chest cage with energy of 75 aranda second. This resulted in conversion from atrial flutter into sinus rhythm. The patient woke up from the effects of anesthesia without any deficits. SUMMARY: This was a successful cardioversion from atrial flutter into sinus rhythm. RECOMMENDATIONS: The patient will continue present medical therapy including the current anticoagulants and beta blockers. We will follow her at the office upon discharge. cc: Yayo Langley MD [facility]
[2017-04-16] MEDS: CORDARONE PO SCH (20:40)
[2017-04-17] MEDS: SYNTHROID PO SCH ×2 (05:02→06:36)
[2017-04-17 05:44] LABS: HEMATOCRIT 29.5 % (37.0-47.0); HEMOGLOBIN 9.1 g/dL (12.0-16.0); MCH 31.6 PG (27-31); MCHC 30.8 g/dL (33-37); MCV 102.4 FL (81-99); MPV 8.9 FL (7.4-10.4); RBC 2.88 XMIL (4.2-5.4)
[2017-04-17 06:05] LABS: CALCIUM 8.6 mg/dL (8.8-10.2); POTASSIUM 4.1 mmol/L (3.5-5.1)
[2017-04-17] MEDS: ELIQUIS PO SCH ×2 (08:24→20:03)
[2017-04-17] MEDS: PRINIVIL PO SCH (08:24)
[2017-04-17] MEDS: LASIX PO SCH ×2 (08:24→20:03)
[2017-04-17] MEDS: NORCO-10 PO SCH ×3 (08:25→21:34)
[2017-04-17] MEDS: NEURONTIN PO SCH ×3 (08:25→20:03)
--- NOTE | 2017-04-17 11:53 | PROGRESS NOTE ---
DATE: 04/17/2017 CHIEF COMPLAINT: Irregular heartbeat and shortness of breath. SUBJECTIVE: Ms. Frank is doing better. She is not having any chest pain. Her breathing is more comfortable. Telemetry indicates that she is in sinus rhythm and her rate is about 65. OBJECTIVE: Vital Signs: Her blood pressure today is 99/47, pulse 14, and temperature 98.1. General: She is awake, alert, oriented, and in no distress. HEENT: Unremarkable. Chest: Diminished breath sounds at the bases. No rales. Cardiovascular: Heart sounds are regular and rhythmic. Occasional extrasystole. Abdomen: Soft and nontender. Extremities: The extremities show no edema. Neurological: She moves all extremities and follows commands. LABORATORY DATA: Blood work today: Hemoglobin 9.1 and hematocrit 29.5. Sodium is 135, potassium 4.1, BUN 24, and creatinine 1. Albumin is 3.0. IMPRESSION: 1. Patient with paroxysmal atrial flutter that has converted electrically yesterday to sinus rhythm. She appears to be clinically better. 2. Congestive heart failure with diastolic dysfunction secondary to the atrial flutter. 3. Rheumatoid arthritis possibly with acute flare-up. 4. Pleural effusions and pericardial effusion. RECOMMENDATIONS: At this point in time I would probably continue the present therapy as we are doing. She may be getting ready to go home soon. She needs to follow up with her Transfusion Aide. Thank you for the opportunity to participate in her evaluation. cc: Yayo Langley MD
--- NOTE | 2017-04-17 12:50 | PROGRESS NOTE ---
DATE: 04/17/2017 SUBJECTIVE: The patient is sitting up in bed, eating breakfast. She states that she feels good today. OBJECTIVE: Vital Signs: Temperature 97 degrees, blood pressure 108/57, heart rate 62, respirations 14, O2 saturations 98% on room air. General: This is an elderly female, lying in bed, in no acute distress. Head: Normocephalic, atraumatic. Heart: S1, S2. Normal. Regular rate and rhythm. Lungs: Clear to auscultation bilaterally. No wheezing. No rales. No rhonchi. Abdomen: Positive bowel sounds. Soft, nontender, nondistended. Extremities: Trace edema. No cyanosis. No calf tenderness. Neurologic: The patient is alert and oriented x3. LABS: Reviewed. ASSESSMENT AND PLAN: 1. Status post cardioversion for atrial flutter. The patient is now in normal sinus rhythm. Continue on the current medications as directed by the gas distribution supervisor. 2. Acute diastolic congestive heart failure exacerbation. Improved. The patient is now on oral Lasix. 3. Hypothyroidism. Continue on Synthroid. 4. Rheumatoid arthritis. The patient will be following up with her customer care specialist upon discharge from the hospital. 5. Continue with physical therapy. DISPOSITION: The patient will be discharged home once cleared by the gas distribution supervisor. cc: Oneyda Figueroa MD MTDD
[2017-04-17] MEDS: CORDARONE PO SCH (20:03)
[2017-04-17] MEDS ORDERED: FLEXERIL PO SCH (21:00)
[2017-04-18 05:14] LABS: CALCIUM 8.7 mg/dL (8.8-10.2); POTASSIUM 3.9 mmol/L (3.5-5.1)
--- NOTE | 2017-04-18 05:19 | EKG Report ---
Test Performed on : 04/17/2017 11:34:04 AM Test Reason : atrial flutter Blood Pressure : / mmHG Vent. Rate : 068 BPM Atrial Rate : 068 BPM P-R Int : 220 ms QRS Dur : 102 ms QT Int : 440 ms P-R-T Axes : 079 036 143 degrees QTc Int : 467 ms Sinus rhythm. with 1st degree AV block. Nonspecific T wave abnormality Abnormal ECG When compared with ECG of 14-APR-2017 03:23, MT interval has increased Confirmed by Grisel Haile MD ([id number]) on 04/18/2017 8:21:03 AM
[2017-04-18] MEDS: SYNTHROID PO SCH (06:30)
--- NOTE | 2017-04-18 07:35 | Diag Imaging Result Doc PS360 ---
EXAM: CHEST-PORTABLE INDICATION: dyspnea TECHNIQUE: One view COMPARISON: 04/15/2017 FINDINGS: Left chest port is in stable position. There is suggestion of mild interstitial edema at the lung bases is similar to the previous study. There are bilateral small effusions that have probably increased in size. Otherwise, no new consolidations are identified. Cardiac silhouette is stable. IMPRESSION: Slight increase in bilateral small pleural effusions. Essentially stable, otherwise. Electronically signed by Gigi Christine 04/18/2017 7:32 AM
[2017-04-18] MEDS: NEURONTIN PO SCH (08:03)
[2017-04-18] MEDS: PRINIVIL PO SCH (08:03)
[2017-04-18] MEDS: ELIQUIS PO SCH (08:03)
[2017-04-18] MEDS: NORCO-10 PO SCH (08:03)
[2017-04-18] MEDS: LASIX PO SCH (08:03)
[2017-04-18] MEDS ORDERED: SAMSCA PO ONE (08:25)
[2017-04-18] MEDS ORDERED: POTASSIUM CHLORIDE 20% LIQUID PO ONE (08:25)
--- NOTE | 2017-04-18 09:08 | PROGRESS NOTE ---
DATE: 04/18/2017 CHIEF COMPLAINT: Irregular heartbeat, swelling, shortness of breath. SUBJECTIVE: Mrs. Schmid, in general, feels better. Her legs are still slightly swollen. Denies having any pain. Feels comfortable. OBJECTIVE: Vital signs: Blood pressure 99/50, temperature 98.1, pulse 63, respirations 14. General: She is awake, alert, oriented, in no distress. HEENT: Unremarkable. Chest. Diminished breath sounds bilaterally. Cardiac: Heart sounds are regular and rhythmic. I do not hear any gallop or murmur. Abdomen: Soft. Extremities: 1+ edema. This appears to be more prominent than yesterday. Neurological: Feels commands, moves four extremities. Musculoskeletal: Joints show deformities of rheumatoid arthritis. BLOOD WORK: Sodium 132, potassium 3.9, BUN 27, creatinine 1.1. IMPRESSION: 1. Patient with paroxysmal atrial fibrillation, successfully cardioverted. 2. Congestive heart failure, diastolic heart failure. 3. Pleural effusions, generalized edema. 4. History of long-term rheumatoid arthritis. RECOMMENDATION: Because of hyponatremia, we will give her one dose of Samsca 30 mg to try to optimize her sodium and also help in optimizing her volume status. She still has edema. We will give her a dose of potassium liquid to make sure her potassium does not drop. Cardiac-cheek, she can probably go home. However, she may require a followup with us for reassessment of her state of fluid overload. cc: Yayo Langley MD
[2017-04-18 10:59] VITALS: BP 91/51
[2017-04-18] MEDS ORDERED: HEPARIN ONE (15:06)
--- NOTE | 2017-04-18 16:33 | DISCHARGE SUMMARY ---
ADMISSION DATE: 04/11/2017 DISCHARGE DATE: 04/18/2017 PRIMARY CARE PHYSICIAN: Rosa Davis MD FINAL DISCHARGE DIAGNOSES: 1. Acute diastolic congestive heart failure exacerbation. 2. Atrial flutter status post cardioversion. 3. Hyponatremia. 4. Anemia of chronic disease. 5. Acute kidney injury. 6. Protein calorie malnutrition. 7. Severe rheumatoid arthritis. CONSULTATIONS REQUESTED DURING THIS HOSPITAL STAY: Cardiology consultation with Dr. Hughes. PROCEDURES PERFORMED DURING THIS HOSPITAL STAY.: Direct current cardioversion performed on 03/17/2017. HOSPITAL COURSE: Ms. Frank is a 81-year-old female with a history of multiple medical problems, who presented to the ER with volume overload and shortness of breath. On admission, the patient was noted to have pulmonary edema and lower extremity edema. The patient was admitted to the hospitalist service and cardiology was consulted. The patient had a 2-dimensional echocardiogram done that revealed an ejection fraction of 60-65%. Upon further assessment, the patient was noted to be in atrial flutter. The patient was started on IV Lasix to aid with diuresis. After the patient was adequately diuresed, she was taken for cardioversion and was converted to normal sinus rhythm. Throughout the hospitalization the patient continued on Eliquis and amiodarone. Slowly over the course of the hospitalization the patient's volume status improved. The patient was eventually transitioned to Lasix 40 mg p.o. daily. Due to hyponatremia the patient was given a dose of Samsca to aid with diuresis and sodium management. DISPOSITION: The patient was cleared for discharge home on 04/18/2017. DISCHARGE MEDICATIONS: 1. Lasix 40 mg p.o. daily. 2. Synthroid 112 mcg oral daily. 3. Flexeril 10 mg p.o. 3 times a day p.r.n. for muscle spasms. 4. Gabapentin 300 mg p.o. 3 times a day. 5. Amiodarone 100 mg p.o. daily. 6. Eliquis 2.5 mg p.o. daily. 7. Lawrence 10/325, 1 tab oral every 4 hours p.r.n. for pain. 8. Lisinopril 5 mg p.o. twice a day. DISCHARGE DIET: Low-sodium diet. ACTIVITY: As tolerated. FOLLOWUP INSTRUCTIONS: The patient will need to follow up with Dr. Davis in 2 weeks. The patient will need to follow up with Dr. Langley in 2 weeks. cc: MD Rosa Hudson MD
== END 2017-04-18 15:24 | disposition home or self-care (01) ==
LOC: SUPCPDRO → ED 05:59 → EDIPHOLD 11:44 → ICU 14:45 → 3S 04-12 14:48
PROVIDERS: ATTEND Internal Medicine

== ENCOUNTER 2017-06-05 07:06 | Inpatient (IN) ==
[2017-06-05] MEDS ORDERED: ASPIRIN PO STA (07:37)
[2017-06-05] MEDS ORDERED: CARDIZEM IV ONE (07:37)
[2017-06-05 08:01] LABS: MANUAL DIFF NEEDED? NO
[2017-06-05 08:03] LABS: BASO% 0.4 % (0.0-0.8); EOS# 0.12 X1000 (0.0-0.7); EOS% 2.2 % (0.0-10.0); HEMATOCRIT 34.7 % (37.0-47.0); HEMOGLOBIN 11.2 g/dL (12.0-16.0); LYMPH# 0.92 X1000 (1.2-3.4); LYMPH% 17.1 % (20.5-51.1); MCH 31.6 PG (27-31); MCHC 32.3 g/dL (33-37); MONO# 0.55 X1000 (0.11-0.59); MONO% 10.2 % (1.7-9.3); NEUT% 70.1 % (42.2-75.2); PLT 227 X1000 (130-400); RBC 3.54 XMIL (4.2-5.4)
[2017-06-05 08:22] LABS: INR 1.2; PROTIME 12.7 Seconds (9.2-11.7); PTT 37.2 Seconds (22.0-36.0)
--- NOTE | 2017-06-05 08:26 | Diag Imaging Result Doc PS360 ---
EXAM: CHEST-PORTABLE HISTORY: sob TECHNIQUE: Portable upright AP COMPARISON: 04/18/2017 FINDINGS: No change in the left-sided portacatheter. No pneumothorax. The heart remains enlarged. There are at least small bilateral pleural effusions with basilar atelectasis. There may be underlying infiltrates as well. The overall appearance of the chest is quite similar to that of the prior exam. Prior orthopedic replacement of each shoulder. IMPRESSION: No interval improvement. Electronically signed by Oneil Gould 06/05/2017 8:23 AM
[2017-06-05 09:11] LABS: ALBUMIN 3.2 g/dL (3.5-5.0); MAGNESIUM 2.1 mg/dL (1.5-2.7); POTASSIUM 4.2 mmol/L (3.5-5.1); TOTAL BILIRUBIN 0.85 mg/dL (0.20-1.00); TOTAL PROTEIN 6.7 g/dL (6.3-8.3)
[2017-06-05] MEDS ORDERED: LASIX IV ONE (09:11)
--- NOTE | 2017-06-05 10:22 | EKG Report ---
Test Performed on : 06/05/2017 07:25:44 AM Test Reason : SOB Blood Pressure : / mmHG Vent. Rate : 117 BPM Atrial Rate : 180 BPM P-R Int : 000 ms QRS Dur : 110 ms QT Int : 344 ms P-R-T Axes : 000 029 168 degrees QTc Int : 479 ms Atrial fibrillation. with rapid ventricular response. Possible Anterior infarct , age undetermined Abnormal ECG When compared with ECG of 17-APR-2017 11:34, Atrial fibrillation. has replaced Sinus rhythm. Vent. rate has increased BY 49 BPM Unconfirmed Result
--- NOTE | 2017-06-05 11:52 | PROVIDER DOCUMENTATION ---
This chart was entered by Fatemeh Baxter Scribe, acting as scribe for Sushant Duncan MD. HPI-Cardiac General - General Chief Complaint: Shortness of Breath Stated Complaint: SOB Time Seen by Provider: 06/05/17 07:29 Allergies/Adverse Reactions: Patient Allergies Allergy/AdvReac Type Severity Reaction Status Date / Time ciprofloxacin [From Cipro] Allergy Severe PAIN Verified 04/11/17 06:31 ciprofloxacin HCl * Allergy Severe PAIN Verified 04/11/17 06:31 [From Cipro] codeine Allergy Severe Unknown Verified 04/11/17 06:31 doxycycline Allergy Severe Unknown Verified 04/11/17 06:31 meperidine HCl * Allergy Severe AMS Verified 04/11/17 06:31 [From Demerol] adhesive Allergy Unknown Regular Verified 04/11/17 06:31 Tape-pulls skin with it pneumococcal 23-valent Allergy Unknown Unknown Verified 04/11/17 06:31 polysac... * [From Pneumovax 23] Home Medications: Home Medication List Medication Instructions Recorded Confirmed Last Taken Type Cyclobenzaprine HCl [Flexeril] 10 mg PO QHS 10/09/13 06/05/17 06/04/17 History Gabapentin 300 mg PO TID 04/29/15 06/05/17 06/04/17 History Amiodarone [Cordarone] 200 mg PO DAILY 02/29/16 06/05/17 06/04/17 History Apixaban [Eliquis] 2.5 mg PO DAILY 04/11/17 06/05/17 06/04/17 History Hydrocodone/APAP 10 mg/325 mg 1 tab PO Q4-6H PRN PRN 04/11/17 06/05/17 06/04/17 History [Wayan-10] Lisinopril 1 tab PO BID 04/11/17 06/05/17 06/04/17 History Furosemide [Lasix] 40 mg PO DAILY #30 tablet 04/18/17 06/05/17 06/04/17 Rx LISINOpril/HCTZ [Prinzide 5 mg PO DAILY 06/05/17 06/05/17 Unknown History 10/12.5MG] Levothyroxine Sodium [Synthroid] 100 mcg PO DAILY 06/05/17 06/05/17 06/04/17 History Magnesium Hydroxide [Milk of 30 ml PO BID 06/05/17 06/05/17 Unknown History Magnesia] - History of Present Illness-Cardiac Nature of Presenting Problem: 81 yo F presents to ED with cc of SOB x 2-3 days. Pt has hx of irregular heartbeat and was instructed by PCP to come to ED with SOB. Pt denies chest pain. Upon arrival to ED, pt is tachycardic and in mild distress. Quality of Pain: reports: none Severity in ED: moderate, severe Onset/Duration: abrupt, 2 days ago, 3 days ago Timing: still present Context/Activities at Onset: reports: none Palpitation Quality: fast/pounding heart beat Associated Symptoms: reports: edema, shortness of breath. denies: diaphoresis, dizziness Similar Symptoms Previously?: Yes (Pt had to be shocked out of irregular rhythm last time here.) Recently Seen Here or By Another Healthcare Provider: No Review of Systems - Adult - REVIEW OF SYSTEMS - ADULT Constitutional: reports: fatique Eyes: reports: no symptoms reported. denies: blurred vision, double vision Ears, Nose, Mouth & Throat: reports: no symptoms reported. denies: sinus problem, nose pain Cardiovascular: reports: edema, palpitations. denies: chest pain Respiratory: reports: shortness of breath Gastrointestinal: reports: no symptoms reported. denies: nausea, vomiting Genitourinary: reports: no symptoms reported. denies: dysuria, flank pain Musculoskeletal: reports: no symptoms reported. denies: joint pain, muscle aches Integumentary: reports: no symptoms reported. denies: hives, rash Neurological: reports: no symptoms reported. denies: dizziness/vertigo, numbness Psychiatric: reports: no symptoms reported. denies: anxiety, depression Endocrine: reports: no symptoms reported. denies: cold intolerance, heat intolerance Hematologic/Lymphatic: reports: no symptoms reported. denies: blood clots, low blood count Allergic/Immunologic: reports: no symptoms reported. denies: allergic reactions , allergic rhinitis All Other Systems: Reviewed and Negative Past History - Adult - PAST MEDICAL HISTORY-ADULT Review of Records: reports: Old Records Reviewed, Nursing Assessment Review, Medications Reviewed Major Childhood Illnesses: reports: denies history Cardiovascular: reports: HTN Respiratory: reports: denies history Gastrointestinal: reports: denies history Obstetrical/Gynecological: reports: denies history Genitourinary: reports: denies history Musculoskeletal: reports: arthritis (RA) Neurological: reports: denies history Endocrine/Immune: reports: thyroid disorder (hypo) Other Conditions: reports: denies history - PRIOR SURGERIES/PROCEDURES Surgical/Procedure History: reports: appendectomy, cholecystectomy, hysterectomy , orthopedic (extremity), joint replacement - IMMUNIZATION STATUS Childhood Immunizations: See Nurse Assessment Flu Vaccine: See Nurse Assessment - FAMILY HISTORY Family History: reviewed, not pertinent Physical Exam-General - PHYSICAL EXAM-ADULT Initial Vital Signs Reviewed: Yes - CONSTITUTIONAL General Appearance: alert, moderate distress - EYES Eyes: PERRL/EOMI, pink conjunctivae - HEAD, EARS, NOSE, MOUTH & THROAT HENMT: normocephalic/atraumatic, moist mucous membranes, normal ENT inspection - NECK Neck: non-tender, full range of motion, normal inspection - RESPIRATORY Respiratory: crackles - CARDIOVASCULAR Cardiovascular: tachycardia, irregularly irregular, other (nonpitting edema) - GASTROINTESTINAL (ABDOMEN) Abdominal Exam: normal bowel sounds, non tender, soft - LYMPHATIC Lymphatic: no adenopathy - MUSCULOSKELETAL Back Exam: normal inspection Extremity: normal range of motion, non-tender, pedal edema (nonpitting) - SKIN Integumentary: normal color, normal turgor - NEUROLOGIC Neurologic: grossly normal, no motor/sensory deficits - PSYCHIATRIC Psych/Mental Status: normal mood/affect, normal thought content, normal thought process, oriented x 3 Progress - PLAN OF CARE/RESULTS Progress/Plan/Lab Results: Vital Signs - 8 hr 06/05/17 07:16 06/05/17 08:38 06/05/17 09:52 Temperature 98.1 F Pulse Rate 131 H 88 88 Respiratory Rate 15 18 18 Blood Pressure 101/66 101/66 107/57 O2 Sat by Pulse Oximetry 97 97 98 Laboratory Results - last 24 hr 06/05/17 06/05/17 06/05/17 07:13 07:49 07:49 WBC 5.37 RBC 3.54 L Hgb 11.2 L Hct 34.7 L MCV 98.0 MCH 31.6 H MCHC 32.3 L RDW Std Deviation 15.3 H Plt Count 227 MPV 9.0 Immature Gran % (Auto) 0.0 Neut % (Auto) 70.1 Lymph % (Auto) 17.1 L [place] % (Auto) 10.2 H Eos % (Auto) 2.2 Baso % (Auto) 0.4 Immature Gran # (Auto) 0.00 Neut # (Auto) 3.76 Lymph # (Auto) 0.92 L [place] # (Auto) 0.55 Eos # (Auto) 0.12 Baso # (Auto) 0.02 PT INR PTT (Actin FS) D-Dimer Sodium 134 L Potassium 4.2 Chloride 89 L Carbon Dioxide 29 Anion Gap 16 BUN 15 Creatinine 0.9 Estimated GFR/1.73 m2 60 BUN/Creatinine Ratio 17 Glucose 91 POC Glucose 103 Calculated Osmolality 269 Calcium 9.0 Magnesium 2.1 Total Bilirubin 0.85 AST 27 ALT 17 Alkaline Phosphatase 115 H Creatine Kinase 82 Troponin T Mna-I-Dtqdtxtnhaz Pept Total Protein 6.7 Albumin 3.2 L Globulin 3.5 Albumin/Globulin Ratio 0.9 06/05/17 06/05/17 06/05/17 07:49 07:49 07:49 WBC RBC Hgb Hct MCV MCH MCHC RDW Std Deviation Plt Count MPV Immature Gran % (Auto) Neut % (Auto) Lymph % (Auto) [place] % (Auto) Eos % (Auto) Baso % (Auto) Immature Gran # (Auto) Neut # (Auto) Lymph # (Auto) [place] # (Auto) Eos # (Auto) Baso # (Auto) PT 12.7 H INR 1.20 PTT (Actin FS) 37.2 H D-Dimer 9.56 H Sodium Potassium Chloride Carbon Dioxide Anion Gap BUN Creatinine Estimated GFR/1.73 m2 BUN/Creatinine Ratio Glucose POC Glucose Calculated Osmolality Calcium Magnesium Total Bilirubin AST ALT Alkaline Phosphatase Creatine Kinase Troponin T Abd-V-Ifrwgmqootm Pept 4144 H Total Protein Albumin Globulin Albumin/Globulin Ratio 06/05/17 07:49 WBC RBC Hgb Hct MCV MCH MCHC RDW Std Deviation Plt Count MPV Immature Gran % (Auto) Neut % (Auto) Lymph % (Auto) [place] % (Auto) Eos % (Auto) Baso % (Auto) Immature Gran # (Auto) Neut # (Auto) Lymph # (Auto) [place] # (Auto) Eos # (Auto) Baso # (Auto) PT INR PTT (Actin FS) D-Dimer Sodium Potassium Chloride Carbon Dioxide Anion Gap BUN Creatinine Estimated GFR/1.73 m2 BUN/Creatinine Ratio Glucose POC Glucose Calculated Osmolality Calcium Magnesium Total Bilirubin AST ALT Alkaline Phosphatase Creatine Kinase Troponin T 0.043 Mkw-U-Bsrffvjyhvh Pept Total Protein Albumin Globulin Albumin/Globulin Ratio Orders Category Date Time Status Cardiac Monitoring DIRECTED Care 06/05/17 07:37 Active Gama Cath Insertion ORDERED Care 06/05/17 11:48 Active Nursing- MD Consult Request ROUTINE Care 06/05/17 11:50 Ordered Saline Loc NOW Care 06/05/17 07:37 Active MD [Physician/Provider Consults] Routine Cons 06/05/17 11:49 Ordered CHEST-PORTABLE [RAD] Stat Exams 06/05/17 07:38 Completed CBC WITH ELECTRONIC DIFF [HEME] Stat Lab 06/05/17 07:49 Completed CK PROFILE [SP CHEM] Stat Lab 06/05/17 07:49 Completed COMPREHENSIVE METABOLIC PANEL [CHEM] Stat Lab 06/05/17 07:49 Completed D-DIMER [CHEM] Stat Lab 06/05/17 07:49 Completed MAGNESIUM [CHEM] Stat Lab 06/05/17 07:49 Completed PRO B-NATRIURETIC PEPTIDE Stat Lab 06/05/17 07:49 Completed PROTIME WITH INR [COAG] Stat Lab 06/05/17 07:49 Completed PTT [COAG] Stat Lab 06/05/17 07:49 Completed TROPONIN T Stat Lab 06/05/17 07:49 Completed Aspirin Med 06/05/17 07:37 Discontinued 325 mg PO STAT STA Diltiazem [Cardizem] Med 06/05/17 07:37 Discontinued 10 mg IV NOW ONE Furosemide [Lasix] Med 06/05/17 09:11 Discontinued 40 mg IV NOW ONE EKG [EKG] Stat Ther 06/05/17 07:21 Draft Transfer/Admit Order [TRANSFER] Routine Transfer 06/05/17 09:36 Ordered Result Diagrams: 06/05/17 07:49 06/05/17 07:49 - XRAY 1 XRAY Study: Chest Impression: Abnormal (No change in the left-sided portacatheter. No pneumothorax. The heart remains enlarged. There are at least small bilateral pleural effusions with basilar atelectasis. There may be underlying infiltrates as well. The overall appearance of the chest is quite similar to that of the prior exam. Prior orthopedic replacement of each shoulder.) Comparison with other Films: no changes XRAY Interpretation: No interval improvement (per [place]) Departure - Departure Date of Disposition Decision: 06/05/17 Time of Disposition Decision: 11:50 DIAGNOSIS: Pleural effusion, left Atrial fibrillation Qualifiers: Atrial fibrillation type: paroxysmal Qualified Code(s): I48.0 - Paroxysmal atrial fibrillation Disposition: ADMITTED INPATIENT 09 Certified Medical Emergency: Emergent Condition: Fair Referrals and Follow-Ups: Rosa Davis MD [Primary Care Provider] - - Critical Care Note This patient required my direct & personal management of CC.: Yes Total Time (mins): 40 Critical Care Statement: This patient required my direct personal management to treat or rule out processes, the absence of which, could potentiallly result in sudden, clinically significant life or limb threatening deterioration. Attestation - Physician/ LAYA Attestation Patient care was provided by Advanced Practice Provider:: No The physician spent face to face time with patient:: Yes Advanced Practice Provider documentation review:: Supervising physician onsite and consulted in the evaluation and care of this patient. The physician did have a face to face encounter with the patient. This chart was documented by the indicated scribe, (Fatemeh Baxter Scribe) and accurately reflects the services I performed and decisions made by me, Sushant Duncan MD, as attested by the provider's signature.
--- NOTE | 2017-06-05 11:52 | ED EKG INTERP ---
This chart was entered by Fatemeh Baxter Scribe, acting as scribe for Sushant Duncan MD. EKG Interpretation - EKG Time of EKG reading by physician:: 07:25 EKG Read and Signed by:: Sushant Duncan EKG Interpretation (*Must complete 3 of following elements*): Abnormal Rate: 117 Rhythm: atrial fibrillation with rapid ventricular response Comments: possible anterior infarct, age undetermined Attestation - Physician/ LAYA Attestation Patient care was provided by Advanced Practice Provider:: No The physician spent face to face time with patient:: Yes Advanced Practice Provider documentation review:: Supervising physician onsite and consulted in the evaluation and care of this patient. The physician did have a face to face encounter with the patient. This chart was documented by the indicated scribe, (Fatemeh Baxter Scribe) and accurately reflects the services I performed and decisions made by me, Sushant Duncan MD, as attested by the provider's signature.
--- NOTE | 2017-06-05 12:45 | HISTORY AND PHYSICAL ---
PRIMARY CARE PHYSICIAN: Rosa Davis MD. ELECTRICAL LINESWORKER: Dr. Yayo Langley. CHIEF COMPLAINT: Palpitations and shortness of breath. HISTORY OF PRESENT ILLNESS: Ms. Frank is a 81-year-old female with a history of paroxysmal atrial fibrillation/flutter, rheumatoid arthritis, and a history of pericardial effusion requiring a pericardial window, who presents to the ER with shortness of breath and palpitations on Sunday. The shortness of breath has worsened on a daily basis since it began and they brought her to the ER today. She has also had palpitations and irregular heartbeat but denies any overt chest pain. She has also had lower extremity edema and orthopnea. She came to the ER today was noted to be in atrial fibrillation with RVR. She was given a one-time dose of IV Cardizem and her heart rate seems to have converted to sinus rhythm at a rate of around 95 beats per minute. Currently, she is still short of breath but is feeling much better. Chest x-ray done in the ER shows cardiomegaly and small bilateral pleural effusions with basilar atelectasis. Her lab work does show proBNP of 4144 and some anemia. She is going to be admitted to the CICU with telemetry for further treatment and evaluation. PAST MEDICAL HISTORY: 1. Rheumatoid arthritis. 2. History of pericardial effusion. 3. CAD. 4. Paroxysmal atrial fibrillation/flutter. 5. Hypothyroidism. 6. Hypertension. 7. Diastolic heart failure. 8. Chronic hyponatremia. SURGICAL HISTORY: Pericardial window, left anterior thoracotomy, cholecystectomy, appendectomy, DC cardioversions, left chest port, bilateral hip replacements, bilateral shoulder replacements, bilateral knee replacements, humeral ORIF. SOCIAL HISTORY: Patient denies tobacco, alcohol or drug use. She lives at home with her . ALLERGIES TO: 1. Cipro. 2. Codeine. 3. Doxycycline. 4. Demerol. 5. Adhesive tape. 6. Pneumococcal vaccination. HOME MEDICATIONS: 1. Lisinopril 20 mg daily. 2. [place] 10 mg as needed for pain 3 times a day. 3. Eliquis 2.5 mg daily. 4. Synthroid 100 mcg p.o. daily. 5. Neurontin 600 mg p.o. daily. 6. Lasix 40 mg daily. 7. Flexeril 10 mg b.i.d. 8. Amiodarone 100 mg at bedtime. REVIEW OF SYSTEMS: Fourteen-point review of systems obtained and found to be negative with the exception of the HPI. PHYSICAL EXAMINATION: VITAL SIGNS: Blood pressure is 107/57, heart rate is 88, respiratory rate 18, O2 saturation 98% on room air. Temperature is 98.1 degrees. GENERAL: This is a frail and elderly appearing, 81-year-old female, lying in hospital bed. No acute distress. NEUROLOGIC: Nonfocal. Patient follows commands and is awake, alert, and oriented. HEENT: Head is atraumatic, normocephalic. Pupils are equal, round, reactive to light. Oral mucosa is moist. Trachea is midline. CHEST: Bibasilar crackles diminished throughout. CV: Irregular. S1, S2 is noted. GI: Soft, nondistended, nontender. Bowel sounds positive. EXTREMITIES: 1+ edema bilaterally. Pulses 1+. DIAGNOSTIC DATA: Chest x-ray shows cardiomegaly with bilateral effusions and congestive heart failure. EKG initially atrial fibrillation RVR, now sinus rhythm with nonspecific T-wave changes. WBC 5.37, hemoglobin 11.2, hematocrit 34.7, platelet count 227,000, INR 1.2, D- dimer 9.56. Sodium 134, potassium 4.2, chloride 89, CO2 29, anion gap 16, BUN 15, creatinine 0.9, glucose is 91, calcium 9, magnesium 2.1. Total bilirubin 0.85, AST 27, ALT 17, alkaline phosphatase 115. Troponin 0.043, CK 82, proBNP 4144, albumin 3.2. ASSESSMENT/PLAN: 1. Acute on chronic heart failure. This is likely induced by her atrial fibrillation with RVR. We will make sure she is getting diuresis, continue her home medications and consult Cardiology. 2. Paroxysmal atrial fibrillation: Seemingly resolved with Cardizem. We will continue all of her medications and defer any change in antiarrhythmics to Cardiology. 3. Profound rheumatism: Continue home medications, chronic and stable. 4. Deep venous thrombosis prophylaxis provided with her home Eliquis. Further recommendations to follow. Dictated by REBECCA Moore for Oneyda Figueroa MD cc: REBECCA Moore MD [facility]
--- NOTE | 2017-06-05 15:49 | Diag Imaging Result Doc PS360 ---
EXAM: CT ANGIOGRM/PULMONARY ARTERIES HISTORY: possible p.e. TECHNIQUE: CT chest with intravenous contrast. Arteriogram protocol. MIP images obtained. COMPARISON: 04/11/2017 FINDINGS: There is a moderate-sized right-sided pleural effusion similar to the prior exam. There is a small left-sided pleural effusion similar to the prior exam. The heart remains enlarged. No change in the prominent left-sided pericardial effusion. There is atelectasis to both lungs. This is most pronounced in the right lower lobe. No improvement compared to the prior exam. There are small patchy infiltrates in the upper lobes on the current exam. There are multiple compression fractures in the thoracic spine and there is cement within several lower vertebra. The appearance is unchanged from prior exam. Normal opacification of the pulmonary arteries and their proximal branches. The a ascending thoracic aorta is dilated to 4.5 cm. There is a large amount of artifact created from bilateral shoulder prostheses. IMPRESSION: No interval improvement. No pulmonary emboli. Electronically signed by Oneil Gould 06/05/2017 3:47 PM
[2017-06-05] MEDS: NEURONTIN PO SCH ×3 (15:54→21:52)
[2017-06-05] MEDS ORDERED: ELIQUIS PO ONE (21:38)
[2017-06-05] MEDS: FLEXERIL PO SCH (21:52)
[2017-06-05] MEDS: LASIX IV SCH (21:53)
[2017-06-05] MEDS: MILK OF MAGNESIA PO SCH (21:53)
[2017-06-06 05:48] LABS: HEMATOCRIT 34.6 % (37.0-47.0); HEMOGLOBIN 11.2 g/dL (12.0-16.0); MCH 31.5 PG (27-31); MCHC 32.4 g/dL (33-37); MCV 97.5 FL (81-99); MPV 10.4 FL (7.4-10.4); RBC 3.55 XMIL (4.2-5.4)
[2017-06-06] MEDS: NORCO-10 PO PRN ×3 (06:41→21:00)
--- NOTE | 2017-06-06 07:30 | EKG Report ---
Test Performed on : 06/06/2017 07:03:31 AM Test Reason : aflutter Blood Pressure : / mmHG Vent. Rate : 110 BPM Atrial Rate : 110 BPM P-R Int : 000 ms QRS Dur : 112 ms QT Int : 392 ms P-R-T Axes : 000 019 195 degrees QTc Int : 530 ms Atrial fibrillation. with rapid ventricular response. Cannot rule out Anterior infarct (cited on or before 05-JUN-2017) Prolonged QT Abnormal ECG When compared with ECG of 05-JUN-2017 07:25, No significant change was found Confirmed by Mike Reeder DO ([id number]) on 06/09/2017 12:27:00 PM
[2017-06-06] MEDS ORDERED: CORDARONE PO SCH (09:00)
[2017-06-06] MEDS ORDERED: ELIQUIS PO SCH (09:00)
[2017-06-06] MEDS ORDERED: PRINZIDE 10/12.5MG PO SCH (09:00)
[2017-06-06] MEDS: NEURONTIN PO SCH ×3 (09:57→20:59)
[2017-06-06] MEDS: MILK OF MAGNESIA PO SCH ×2 (09:57→20:59)
[2017-06-06] MEDS: ELIQUIS PO SCH ×2 (09:57→20:56)
[2017-06-06] MEDS: SYNTHROID PO SCH (09:57)
[2017-06-06] MEDS: LASIX IV SCH ×2 (09:57→21:01)
[2017-06-06 10:59] LABS: CALCIUM 8.8 mg/dL (8.8-10.2); POTASSIUM 4.1 mmol/L (3.5-5.1)
[2017-06-06] MEDS: CARDIZEM PO SCH ×2 (13:00→18:01)
[2017-06-06] MEDS ORDERED: SOLU-MEDROL IV ONE (15:24)
--- NOTE | 2017-06-06 17:41 | PROGRESS NOTE ---
DATE: 06/06/2017 SUBJECTIVE: The patient is resting comfortably in bed. She has no complaints at this time. She states that the swelling in her legs has improved. OBJECTIVE: Vital signs: Temperature 97.6 degrees, blood pressure 125/58, heart rate 70 respirations 18, O2 saturation 100% on 3 L nasal cannula. General: This is an elderly female, lying in bed, in no acute distress. Head normocephalic atraumatic. Heart S1, S2 normal. Lungs: Equal air entry bilaterally. No crackles, no rales. Abdomen: Positive bowel sounds, soft, nontender, nondistended. Extremities: No edema. No cyanosis. No calf tenderness. Neurologic: The patient is alert oriented x 3. LABS: White blood cell count 5.8, hemoglobin 11, hematocrit 34, platelets 250, 000. Sodium 134 potassium 4.1, chloride 91, CO2 34, BUN 15, creatinine 1. ASSESSMENT AND PLAN: 1. Volume overload. The patient is currently on IV Lasix. Will monitor the patient's urine output and daily weights closely. Cardiology has been consulted for further assistance with management. 2. Rheumatoid arthritis flare. Aware. The patient's rheumatoid factor is elevated and CRP is also elevated as well as the sedimentation rate. The patient has been started on steroids by the cloth dyer. 3. Pericardial effusion. An echo has been ordered by the cloth dyer. 4. Atrial flutter. The patient has been started on Cardizem by the cloth dyer. Continue on Eliquis. 5. Hypothyroidism. Continue on Synthroid. cc: Oneyda Figueroa MD MTDD
[2017-06-06] MEDS: FLEXERIL PO SCH (20:55)
[2017-06-07] MEDS: CORDARONE PO SCH ×2 (00:40→20:08)
[2017-06-07] MEDS: NORCO-10 PO PRN ×3 (00:42→20:08)
[2017-06-07] MEDS: CARDIZEM PO SCH ×4 (00:43→17:29)
[2017-06-07] MEDS: SOLU-MEDROL IV SCH ×4 (00:43→17:29)
--- NOTE | 2017-06-07 02:16 | CONSULTATION ---
DATE OF CONSULTATION: 06/06/2017 REASON FOR CONSULTATION: Dyspnea, shortness of breath. HISTORY: Ms. Frank is an unfortunate 81-year-old female known to me. She presented for admission yesterday through the emergency department because of complaints of increasing dyspnea and swelling of her lower extremities. The patient states that this has been progressing since the last time she saw me at the office, which was May 01. The patient states that she has not noticed any worsening of her symptoms of rheumatoid arthritis. She has not noticed any fever or cough. She also felt that her heart was beating irregularly. She denies having any nausea, vomiting, syncope, or diarrhea. PAST MEDICAL AND SURGICAL HISTORY: Her past history is positive for rheumatoid arthritis for many years. She has been under the care of Dr. Quesada in [place]. She has history of recurrent congestive heart failure, diastolic dysfunction, precipitated mostly by atrial arrhythmia, atrial fibrillation and flutter. We performed a recent cardioversion on April 11 from atrial flutter. She has history of hypothyroidism and hypertension. She has had bilateral pleural effusions that have required thoracentesis in the past. She has had also surgical history positive for pericardiocentesis, left thoracotomy, pericardial window, cholecystectomy, appendectomy, bilateral hip replacement, bilateral shoulder replacement, bilateral knee replacement. SOCIAL HISTORY: She lives at home with . Not a smoker. FAMILY HISTORY: Sister, father, and brother had coronary heart disease. HOME MEDICATIONS: 1. Lisinopril 10/12.5 hydrochlorothiazide daily, 5 mg. 2. Magnesium hydroxide 30 mL twice a day. 3. Levothyroxine 100 mcg daily. 4. Hydrocodone APAP 10/325 every 4-6 hours. 5. Gabapentin 300 three times a day. 6. Furosemide 40 mg daily. 7. Flexeril 10 mg at bedtime. 8. Apixaban 2.5 daily. 9. Amiodarone 200 mg daily. ALLERGIES: Ciprofloxacin, codeine, doxycycline, meperidine, adhesive tape. REVIEW OF SYSTEMS: Very limited because of her severe rheumatoid arthritis. Progressive weight loss. Appetite has not been too good. Increasing dyspnea. PHYSICAL EXAMINATION: Vital signs: Blood pressure 124/62. Pulse 112, irregular. Temperature 97.7. Respirations 18. General: Elderly female in no distress. Multiple deformities in the hands from rheumatoid arthritis. Appears to be somewhat flushed. Neck veins are not distended. Chest: Bilateral dullness at both bases with decreased breath sounds bilaterally. Cardiac: Heart sounds are slightly tachycardic, irregular. No rub or gallop is noted. No murmur is noted. Abdomen: Soft. Extremities: Showed 2-3+ edema bilaterally. Pulses are diminished. Neurologic: She moves four extremities. Follows commands. LABORATORY DATA: D-dimer was elevated at 9.[address] that prompted a CT angiogram of the chest. Sedimentation rate 71. C reactive protein was 28.68. We have rechecked a rheumatoid factor level and it is greater than 350. Her troponins were 0.043, 0.041, and 0.033. ProBNP level elevated at 4144. BUN 15, creatinine 1.0. Hemoglobin 11.2, hematocrit 34.6, white count 5830. the official report of the pulmonary arteriogram indicated no pulmonary emboli with presence of patchy infiltrates in the upper lobes with multiple compression fractures in the thoracic spine. There was left-sided pericardial effusion, atelectasis to both lungs, a small left-sided pericardial effusion, and a moderate sized right pleural effusion. A large amount of artifact from the shoulder prosthesis. No significant change when compared to prior study from 04/11/2017. Her EKG showed atrial fibrillation with rapid response. No ischemic changes. IMPRESSION: 1. Patient presenting with increasing dyspnea, bilateral pleural effusions. This is probably congestive heart failure, chronic diastolic, with acute component. The atrial fibrillation seems to be the trigger of this heart failure. 2. History of hypertension. 3. History of rheumatoid arthritis. She has active inflammatory markers. RECOMMENDATIONS: At this point in time, I would suggest to add Solu-Medrol to her regimen. We will arrange for a DCCV (direct current cardioversion) on her within the next 48 hours. At this point in time, we are going to try to optimize her anticoagulation with Eliquis. She should be on at least 2.5 twice a day. We will recommend addition of diltiazem to optimize her heart rate and continue IV Lasix to achieve euvolemic state. Further advice will be forthcoming. I would probably like to check a complement level on her. cc: Yayo Langley MD
[2017-06-07 05:38] LABS: HEMATOCRIT 33.6 % (37.0-47.0); HEMOGLOBIN 10.8 g/dL (12.0-16.0); MCH 31.4 PG (27-31); MCHC 32.1 g/dL (33-37); MCV 97.7 FL (81-99); MPV 9.2 FL (7.4-10.4); RBC 3.44 XMIL (4.2-5.4)
[2017-06-07 06:09] LABS: POTASSIUM 4.2 mmol/L (3.5-5.1)
--- NOTE | 2017-06-07 06:15 | EKG Report ---
Test Performed on : 06/07/2017 05:33:53 AM Test Reason : afib Blood Pressure : / mmHG Vent. Rate : 106 BPM Atrial Rate : 106 BPM P-R Int : 000 ms QRS Dur : 116 ms QT Int : 380 ms P-R-T Axes : 000 021 199 degrees QTc Int : 504 ms Atrial fibrillation. Nonspecific ST and T wave abnormality diffuse Cannot rule out Anterior infarct (cited on or before 05-JUN-2017) Abnormal ECG When compared with ECG of 06-JUN-2017 07:03, (Unconfirmed) No significant change was found Confirmed by Mike Reeder DO ([id number]) on 06/10/2017 4:27:55 PM
--- NOTE | 2017-06-07 07:31 | Diag Imaging Result Doc PS360 ---
EXAM: CHEST-PORTABLE HISTORY: dyspnea, pleural effusions TECHNIQUE: Erect AP portable at 0605 COMMENT: There is cardiomegaly. There are small pleural effusions particularly on the left where there may be some pleural thickening as well as loculation. There is probable mild interstitial pulmonary edema. Overall considering differences in technique this has not changed significantly since 06/05/2017 IMPRESSION: Cardiomegaly, pulmonary edema and pleural effusions. Electronically signed by Woody Lees 06/07/2017 7:29 AM
[2017-06-07] MEDS: NEURONTIN PO SCH ×3 (08:24→20:08)
[2017-06-07] MEDS: ELIQUIS PO SCH ×2 (08:24→20:08)
[2017-06-07] MEDS: SYNTHROID PO SCH (08:24)
[2017-06-07] MEDS: MILK OF MAGNESIA PO SCH ×3 (08:25→20:08)
[2017-06-07] MEDS: LASIX IV SCH ×2 (08:25→20:08)
--- NOTE | 2017-06-07 10:53 | PROGRESS NOTE ---
DATE: 06/07/2017 CHIEF COMPLAINT: Shortness of breath, irregular heartbeat. SUBJECTIVE: Mrs. Frank is feeling better. I started her on high doses of steroids yesterday. All of her rheumatoid inflammatory markers were very high. She is not having any pain. She generally feels better. OBJECTIVE: Vital signs: Heart rate today is better controlled, is about 87. Blood pressure 170/60, temperature 97.9, respirations 18. General: She is elderly, awake, in no distress, sitting upright. Daughter is at the bedside. She appears to be somewhat flushed. HEENT: Unremarkable. Chest: Diminished breath sounds at both bases. Cardiac: Heart sounds are relatively regular today. Abdomen: Nontender. Extremities: Showed deformities of rheumatoid arthritis in the hands, trace swelling in the legs. Neurological: Moves four extremities, follows commands. BLOOD WORK: Hemoglobin 10.8, hematocrit 33.6, white count 4850. Sodium 133, potassium 4.2, BUN 19, creatinine 0.9. IMPRESSION: 1. Patient who has paroxysmal atrial fibrillation, and she appears to have converted to atrial flutter today. Her electrocardiogram done this morning shows findings more consistent with atrial flutter, rate is 106. 2. Advanced rheumatoid arthritis with active disease. 3. Bilateral pleural effusions, probably in part related to rheumatoid arthritis and probably in part related to diastolic congestive heart failure. 4. History of hypertension. RECOMMENDATIONS: At this point in time, I will continue a course of steroids. I will continue with Lasix. I would advise to proceed with cardioversion in the morning. She has continued taking Eliquis. She may not need a transesophageal echocardiogram at this point. The patient really needs to be sent back to her supervisor quality control to reassess the status of her inflammatory condition. Thank you again for the opportunity to participate in her evaluation. Best regards. cc: Yayo Langley MD
--- NOTE | 2017-06-07 17:14 | PROGRESS NOTE ---
DATE: 06/07/2017 SUBJECTIVE: The patient is resting comfortably in bed. She states that she feels a little bit better today. OBJECTIVE: Vital Signs: Temperature 98.6 degrees, blood pressure 103/61, heart rate 88, respirations 18, O2 saturations 99% on 1 L nasal cannula. General: This is an elderly female, lying in bed, in no acute distress. Head: Normocephalic. Atraumatic. Heart: S1, S2. Normal. Irregularly irregular rhythm. Lungs: Equal air entry bilaterally. No crackles, no rales. Abdomen: Positive bowel sounds. Soft, nontender, nondistended. Extremities: No edema, no cyanosis. Neurologic: The patient is alert and oriented x3. LABORATORY: White blood cell count 4.8, hemoglobin 10, hematocrit 33, platelets 229,000. Sodium 133, potassium 4.2, chloride 88, CO2 30, BUN 19, creatinine 0.9, glucose 134. ASSESSMENT AND PLAN: 1. Volume overload. The patient remains on Lasix. Further management as per the grapple operator. 2. Atrial fibrillation. The patient is scheduled to undergo cardioversion tomorrow. 3. Rheumatoid arthritis flare. The patient is currently on IV steroids. 4. Hypothyroidism. Continue on Synthroid. 5. Anemia. The patient's hemoglobin and hematocrit are stable. 6. Hyponatremia. We will continue to monitor the patient's sodium closely. The patient may benefit from a dose of [place] if the sodium continues to fall. cc: Oneyda Figueroa MD
--- NOTE | 2017-06-07 19:07 | ECHO REPORT ---
ORDER DATE: 06/06/2017 STUDY: Limited echocardiogram. INTERPRETING PHYSICIAN: Dr. Langley REQUESTING PHYSICIAN: CLINICAL INDICATIONS: Patient with recurrent atrial arrhythmia, pleural effusion, CHF. SUMMARY OF FINDINGS: This is a technically challenging study. Acoustic windows are limited. The global ejection fraction of the left ventricle appears to be preserved. Ejection fraction probably in the order of 55%. There is impairment of the basal posterior wall, the basal inferior wall, and the basal interventricular septum, suggesting disease of the right coronary artery. There is thickening of the pericardium with what appears to be organizing material layering the free wall of the right ventricle. This is probably consistent with the patient's history of previous pericarditis. The mitral annulus is densely calcified. Color flow mapping of the mitral valve indicates a moderate degree of regurgitation. The aortic valve is also calcified. Color flow mapping reveals a [id number] degree of regurgitation. The tricuspid valve shows at least a mild degree of regurgitation. The inferior vena cava is dilated at 2.4 cm. The left atrium is significantly enlarged. The right ventricle is slightly prominent. The pulmonary pressure is probably somewhere in the range of 28-33 mmHg. The diastolic pressure is probably somewhere in the range of 16-21 mmHg. Pleural effusion also appears to be present. IMPRESSION: 1. 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 2. Overall preserved left ventricular systolic function with wall motion abnormality at the level of the basal inferior wall suggesting coronary heart disease. 3. Dense calcification of mitral annulus with moderate degree of mitral regurgitation. There is also sclerosis of the aortic valve with a [id number] degree of aortic regurgitation. Clinical correlation is strongly recommended. cc: MD Fatemeh Erazo PA
[2017-06-07] MEDS: FLEXERIL PO SCH (20:08)
[2017-06-08] MEDS: SOLU-MEDROL IV SCH (00:34)
[2017-06-08] MEDS: CARDIZEM PO SCH ×3 (00:34→11:58)
[2017-06-08] MEDS: NORCO-10 PO PRN (00:53)
[2017-06-08] MEDS ORDERED: SOLU-MEDROL IV ONE (05:00)
--- NOTE | 2017-06-08 05:53 | EKG Report ---
Test Performed on : 06/08/2017 05:32:30 AM Test Reason : afib Blood Pressure : / mmHG Vent. Rate : 092 BPM Atrial Rate : 049 BPM P-R Int : 000 ms QRS Dur : 108 ms QT Int : 384 ms P-R-T Axes : 000 007 176 degrees QTc Int : 474 ms Accelerated Junctional rhythm. Anterior infarct (cited on or before 05-JUN-2017) ST \T\ T wave abnormality, consider lateral ischemia Abnormal ECG When compared with ECG of 07-JUN-2017 05:33, (Unconfirmed) ST and T wave changes in the high-lateral leads is historical (when compared to 06/07/2017 but NEW co mpared to 12/2013 study) Nonspecific ST elevation persist and is NEW compared to december 2013 Clinical Correlation advised Confirmed by Mike Reeder DO ([id number]) on 06/10/2017 4:52:31 PM
[2017-06-08 06:00] LABS: HEMATOCRIT 34.9 % (37.0-47.0); HEMOGLOBIN 11.4 g/dL (12.0-16.0); MCH 32.5 PG (27-31); MCHC 32.7 g/dL (33-37); MCV 99.4 FL (81-99); MPV 9.2 FL (7.4-10.4); RBC 3.51 XMIL (4.2-5.4)
[2017-06-08 06:18] LABS: CALCIUM 9.5 mg/dL (8.8-10.2); POTASSIUM 3.9 mmol/L (3.5-5.1)
[2017-06-08] MEDS: SYNTHROID PO SCH (08:03)
[2017-06-08] MEDS: ELIQUIS PO SCH (08:03)
[2017-06-08] MEDS: LASIX IV SCH (08:04)
[2017-06-08] MEDS: NEURONTIN PO SCH (08:04)
[2017-06-08] MEDS ORDERED: DIPRIVAN 1% ONE ×2 (08:51)
[2017-06-08] MEDS ORDERED: ANESTHESIA PB SET 88 IN 5742 ONE (09:10)
[2017-06-08] MEDS ORDERED: NS 1,000 ML ONE (09:10)
[2017-06-08] MEDS: MILK OF MAGNESIA PO SCH (09:22)
--- NOTE | 2017-06-08 09:42 | Extremity Venous Study ---
PROCEDURE NAME: Venous U/S Bilateral Legs - 06/05/2017 REFERRING PHYSICIAN: Oneyda Figueroa MD. WET COTTON FEEDER: Aneudy Albrecht RVT. INDICATIONS: Swelling of limb ICD-10 M79.89. FINDINGS: Right common femoral vein and its branches, deep and superficial femoral veins were satisfactorily imaged. They had flow through them and were compressible. Right popliteal vein and the deep veins of the right knee were all compressible and had flow through them. The superficial veins to the right lower extremity were compressible throughout their length. The left common femoral vein and its branches, deep and superficial femoral veins were also satisfactorily imaged. They had flow through them and were compressible. Left popliteal vein and the deep veins below the left knee were all compressible and had flow through them. The superficial veins to the left lower extremity were compressible throughout their length. INTERPRETATION: No evidence of acute deep or superficial venous thrombosis of the bilateral lower extremities. cc: MD Oneyda Vega MD
--- NOTE | 2017-06-08 10:04 | CARDIAC CATH REPORT ---
DATE: 06/08/2017 PREPROCEDURE DIAGNOSIS: Persistent atrial flutter/fibrillation. POSTPROCEDURE DIAGNOSIS: Persistent atrial flutter/fibrillation. PROCEDURE PERFORMED: Direct current cardioversion. INDICATION: The patient is with atrial fibrillation and atrial flutter. DESCRIPTION OF PROCEDURE: The patient was consented in the presence of her on 06/07/2017. The benefits, risks and complications were explained, and they still requested to proceed. The patient was brought to the cardiac hemodialysis lab technician in a fasting state. She was prepped, and the pads were positioned in anterior posterior location. The patient was given IV propofol under the services of Dr. Raymond. Once the patient was adequately sedated, she received a single synchronized countershock to the chest cage consisting of 50 aranda per second. The converted from atrial flutter into sinus rhythm with PACs. She woke up from the effects of anesthesia without deficit. The patient tolerated the procedure well. SUMMARY: This was a successful cardioversion from atrial flutter into sinus rhythm with PACs. RECOMMENDATIONS: The patient will continue present medical therapy including high dose of steroids to treat her active rheumatoid arthritis and amiodarone at low dose as well as calcium blockers or beta blockers at low dose and follow up with us at the office. She may be discharged later on today. cc: Yayo Langley MD
[2017-06-08 12:07] VITALS: BP 95/60
--- NOTE | 2017-06-14 09:32 | DISCHARGE SUMMARY ---
ADMISSION DATE: 06/05/2017 DISCHARGE DATE: 06/08/2017 FINAL DISCHARGE DIAGNOSES: 1. Volume overload. 2. Atrial fibrillation. 3. Rheumatoid arthritis flare. 4. Hypothyroidism. 5. Anemia of chronic disease. 6. Hyponatremia. CONSULTATIONS REQUESTED DURING THIS HOSPITAL STAY: Cardiology consultation with Dr. Langley. PROCEDURES PERFORMED DURING THIS HOSPITAL STAY: A cardioversion performed on June 08, 2017. HOSPITAL COURSE: Ms. Frank is a 81-year-old female with a history of severe rheumatoid arthritis, congestive heart failure, atrial fibrillation and atrial flutter, who presented to the ER with volume overload. The patient states that she was feeling more short of breath and her legs were swelling, so she came to the ER. On admission, the patient was noted to be in a CHF exacerbation, was admitted, and started on IV Lasix. Also inflammatory markers were checked as well as a rheumatoid factor and it was noted that the patient was also having rheumatoid arthritis flare. The patient was started on IV steroid as well. The patient was noted to be switching between atrial fibrillation and atrial flutter. As a result, it was thought that the patient would benefit from cardioversion since it was the likely culprit for inciting the patient has CHF exacerbation. The patient was taken to the microbiological laboratory technician on June 08, 2017 and underwent a successful cardioversion. Following the procedure the patient was noted to be in normal sinus rhythm. The patient continued to improve clinically and was cleared for discharge home on June 08, 2017. DISCHARGE MEDICATIONS: 1. Eliquis 2.5 mg p.o. twice a day. 2. Cardizem CD 120 mg p.o. daily. 3. Lisinopril 2.5 mg p.o. daily. 4. Prednisone 40 mg daily taper. 5. Flexeril 10 mg p.o. at bedtime. 6. Gabapentin 300 mg p.o. 3 times a day. 7. Amiodarone 200 mg p.o. daily. 8. [place] 10/325 one tablet oral every 4 hours p.r.n. for pain. 9. Lasix 40 mg p.o. daily. 10. Synthroid 100 mcg p.o. daily. DISCHARGE DIET: Low-sodium diet. ACTIVITY: As tolerated. FOLLOWUP INSTRUCTIONS: The patient has been advised to follow up with Dr. Langley as scheduled by his clinic. The patient will also need to follow up with Dr. Martin Quesada as soon as possible. For further treatment for her rheumatoid arthritis. The patient will need to follow up with Dr. Rosa Davis in 2 weeks. cc: MD Dr. Martin Titus MD
== END 2017-06-08 14:20 | disposition home health service (06) ==
LOC: ED 07:06 → 3N 11:53 → 3S 13:34
PROVIDERS: ATTEND Internal Medicine